=== PATIENT | female | born 1970 | race African-American/Black ===

== ENCOUNTER 2020-04-15 12:04 | Inpatient (IN) | payer OTHER ==
[2020-04-15] MEDS ORDERED: BISMUTH SUBSALICYLATE 524 MG/30 ML PO PRN (15:12)
[2020-04-15] MEDS ORDERED: NICOTINE POLACRILEX 2 MG GUM BUC PRN (15:12)
[2020-04-15] MEDS ORDERED: MAGNESIUM HYDROX 2400MG/30ML ORAL SUSPENSION 30 ML CUP PO PRN (15:12)
[2020-04-15] MEDS ORDERED: ACETAMINOPHEN 325 MG TABLET (FP) PO PRN ×2 (15:12)
[2020-04-15] MEDS ORDERED: MAG HYDROX/AL HYDROX/SIMETH 30 ML UNIT-DOSE CUP PO PRN (15:12)
[2020-04-15] MEDS ORDERED: ONDANSETRON *ODT* 4 MG TABLET SL PRN (15:12)
[2020-04-15] MEDS ORDERED: METHOCARBAMOL 500 MG TABLET PO PRN (15:12)
[2020-04-15] MEDS ORDERED: chlordiazePOXIDE HCL 25 MG CAPSULE PO PRN (15:12)
[2020-04-15] MEDS ORDERED: MAGNESIUM CITRATE 300 ML BOTTLE PO PRN (15:12)
[2020-04-15] MEDS ORDERED: MENTHOL/PHENOL 1 EACH UD MM PRN (15:12)
[2020-04-15] MEDS ORDERED: IBUPROFEN 400 MG TABLET (FP) PO PRN (15:12)
[2020-04-15 15:25] VITALS: BMI 31.1
[2020-04-15] MEDS ORDERED: ALBUTEROL SO4 HFA INHALER IH PRN (15:25)
[2020-04-15] MEDS: INSULIN SLIDING SCALE (NOVOLOG) 1 VIAL SQ SCH ×2 (17:26→22:32)
[2020-04-15] MEDS: metFORMIN HCL 500 MG TABLET (FP) PO SCH (18:01)
[2020-04-15] MEDS: hydrOXYzine PAMOATE 25 MG CAPSULE (FP) PO SCH ×2 (19:12→22:31)
[2020-04-15] MEDS ORDERED: QUEtiapine FUMARATE 100 MG TABLET (FP) PO ONE (19:56)
[2020-04-15] MEDS: ATORVASTATIN CA 10 MG TABLET (FP) PO SCH (22:25)
[2020-04-15] MEDS: MELATONIN 5 MG TABLETS PO SCH (22:25)
[2020-04-15] MEDS: THIAMINE HCL 100 MG TABLET (FP) PO SCH (22:25)
[2020-04-15] MEDS: INSULIN (LEVEMIR) 100 UNITS/ML UNITS SQ SCH (22:26)
[2020-04-15] MEDS: chlordiazePOXIDE HCL 25 MG CAPSULE PO SCH (22:30)
[2020-04-16] MEDS: chlordiazePOXIDE HCL 25 MG CAPSULE PO SCH ×4 (06:52→22:35)
[2020-04-16] MEDS: metFORMIN HCL 500 MG TABLET (FP) PO SCH ×2 (06:53→17:33)
[2020-04-16] MEDS: INSULIN SLIDING SCALE (NOVOLOG) 1 VIAL SQ SCH ×4 (07:00→22:38)
[2020-04-16] MEDS: hydrOXYzine PAMOATE 25 MG CAPSULE (FP) PO SCH ×2 (07:00→10:20)
[2020-04-16] MEDS ORDERED: PATIENT'S OWN MEDICATION (NON-FORMULARY) (Prednisone [Prednisone 50 Mg Tablets] 50 MG Tabl PO SCH (10:00)
[2020-04-16] MEDS ORDERED: SALMETEROL IH PRN ×2 (10:18→10:19)
[2020-04-16] MEDS ORDERED: FLUTICASONE PROPION IH PRN ×2 (10:18→10:19)
[2020-04-16] MEDS ORDERED: [UNRECOGNIZED DRUG - OTHER] IH PRN ×2 (10:18→10:19)
[2020-04-16] MEDS: ASPIRIN COATED 81 MG TABLET.EC PO SCH (10:19)
[2020-04-16] MEDS: LISINOPRIL 10 MG TABLET PO SCH (10:19)
[2020-04-16] MEDS: NIFEdipine E.R. 30 MG TABLET PO SCH (10:19)
[2020-04-16] MEDS: FERROUS SO4 325 MG TABLET (FP) PO SCH (10:19)
[2020-04-16] MEDS: predniSONE 40 MG, predniSONE 10 MG PO SCH (10:19)
[2020-04-16] MEDS: PRENATAL VITAMINS W/ FOLIC ACID TABLET (FP) PO SCH (10:20)
[2020-04-16 11:48] LABS: HEMATOCRIT 37.3 % (32.4-45.2); HEMOGLOBIN 11.9 GM/dL (10.7-15.3); MCH 25.8 pg (25.7-33.7); MEAN CELL VOLUME 80.8 fl (80-96); MEAN PLT VOLUME 8.3 fl (7.5-11.1); PLATELET COUNT 334 K/MM3 (134-434); RBC 4.62 M/mm3 (3.60-5.2); RDW 23.8 % (11.6-15.6); WHITE BLOOD COUNT 5.9 K/mm3 (4.0-10.0)
[2020-04-16] MEDS: [UNRECOGNIZED DRUG - OTHER] IH SCH (12:41)
[2020-04-16] MEDS: SALMETEROL IH SCH (12:41)
[2020-04-16] MEDS: FLUTICASONE PROPION IH SCH (12:41)
[2020-04-16 12:43] LABS: CALCIUM 9.3 mg/dL (8.5-10.1)
[2020-04-16 12:44] LABS: ALBUMIN 3.7 g/dl (3.4-5.0); BLOOD UREA NITROGEN 10.1 mg/dL (7-18)
[2020-04-16 12:47] LABS: CREATININE 0.7 mg/dL (0.55-1.3)
[2020-04-16 12:49] LABS: BILIRUBIN,TOTAL 0.9 mg/dL (0.2-1); TOT PROT 8.6 g/dl (6.4-8.2)
[2020-04-16] MEDS ORDERED: hydrOXYzine PAMOATE 25 MG CAPSULE (FP) PO PRN (13:43)
[2020-04-16] MEDS ORDERED: PANTOPRAZOLE 40 MG TABLET PO ONE (14:00)
[2020-04-16] MEDS ORDERED: MASKS NR ONE (16:50)
[2020-04-16] MEDS: QUEtiapine FUMARATE 100 MG TABLET (FP) PO SCH (22:34)
[2020-04-16] MEDS: THIAMINE HCL 100 MG TABLET (FP) PO SCH (22:35)
[2020-04-16] MEDS: MELATONIN 5 MG TABLETS PO SCH (22:35)
[2020-04-16] MEDS: ATORVASTATIN CA 10 MG TABLET (FP) PO SCH (22:35)
[2020-04-16] MEDS: INSULIN (LEVEMIR) 100 UNITS/ML UNITS SQ SCH (22:38)
[2020-04-17] MEDS: INSULIN SLIDING SCALE (NOVOLOG) 1 VIAL SQ SCH ×4 (06:35→21:50)
[2020-04-17] MEDS: metFORMIN HCL 500 MG TABLET (FP) PO SCH ×2 (06:35→16:48)
[2020-04-17] MEDS: chlordiazePOXIDE HCL 25 MG CAPSULE PO SCH ×4 (06:39→22:17)
[2020-04-17] MEDS: ASPIRIN COATED 81 MG TABLET.EC PO SCH (10:23)
[2020-04-17] MEDS: FERROUS SO4 325 MG TABLET (FP) PO SCH (10:23)
[2020-04-17] MEDS: LISINOPRIL 10 MG TABLET PO SCH (10:24)
[2020-04-17] MEDS: PRENATAL VITAMINS W/ FOLIC ACID TABLET (FP) PO SCH (10:24)
[2020-04-17] MEDS: NIFEdipine E.R. 30 MG TABLET PO SCH (10:24)
[2020-04-17] MEDS: PANTOPRAZOLE 40 MG TABLET PO SCH (10:24)
[2020-04-17] MEDS: predniSONE 40 MG, predniSONE 10 MG PO SCH (10:35)
[2020-04-17] MEDS: MELATONIN 5 MG TABLETS PO SCH (21:48)
[2020-04-17] MEDS: QUEtiapine FUMARATE 100 MG TABLET (FP) PO SCH (21:48)
[2020-04-17] MEDS: ATORVASTATIN CA 10 MG TABLET (FP) PO SCH (21:48)
[2020-04-17] MEDS: THIAMINE HCL 100 MG TABLET (FP) PO SCH (21:48)
[2020-04-17] MEDS: INSULIN (LEVEMIR) 100 UNITS/ML UNITS SQ SCH (22:48)
[2020-04-18] MEDS ORDERED: chlordiazePOXIDE HCL 10 MG CAPSULE PO PRN
[2020-04-18] MEDS: metFORMIN HCL 500 MG TABLET (FP) PO SCH (06:44)
[2020-04-18] MEDS: chlordiazePOXIDE HCL 10 MG CAPSULE PO SCH ×2 (06:44→10:06)
[2020-04-18] MEDS: INSULIN SLIDING SCALE (NOVOLOG) 1 VIAL SQ SCH ×2 (06:46→12:23)
[2020-04-18] MEDS: ASPIRIN COATED 81 MG TABLET.EC PO SCH (10:05)
[2020-04-18] MEDS: NIFEdipine E.R. 30 MG TABLET PO SCH (10:05)
[2020-04-18] MEDS: LISINOPRIL 10 MG TABLET PO SCH (10:05)
[2020-04-18] MEDS: PANTOPRAZOLE 40 MG TABLET PO SCH (10:05)
[2020-04-18] MEDS: FERROUS SO4 325 MG TABLET (FP) PO SCH (10:05)
[2020-04-18] MEDS: predniSONE 40 MG, predniSONE 10 MG PO SCH (10:05)
[2020-04-18] MEDS: PRENATAL VITAMINS W/ FOLIC ACID TABLET (FP) PO SCH (10:05)
[2020-04-18 13:16] VITALS: BP 128/82; PULSE 64; TEMP 97.1
[2020-04-19] MEDS ORDERED: chlordiazePOXIDE HCL 10 MG CAPSULE PO SCH (05:00)
[2020-04-20] MEDS ORDERED: chlordiazePOXIDE HCL 10 MG CAPSULE PO ONE (05:00)
== END 2020-04-18 13:46 | disposition home or self-care (01) | DRG 775 ==
LOC: YASAS 12:04 → Y3N 15:42
PROVIDERS: ADMIT Allergy & Immunology; ATTEND Allergy & Immunology
PROC: HZ2ZZZZ Detoxification Services for Substance Abuse Treatment (ICD-10-PCS; principal; 2020-04-15)
DX: F10.230 Alcohol dependence with withdrawal, uncomplicated (principal); F17.210 Nicotine dependence, cigarettes, uncomplicated; F25.9 Schizoaffective disorder, unspecified; F19.24 Other psychoactive substance dependence with psychoactive substance-induced mood disorder; F32.9 Major depressive disorder, single episode, unspecified; G47.00 Insomnia, unspecified; E78.5 Hyperlipidemia, unspecified; E11.9 Type 2 diabetes mellitus without complications; Z79.4 Long term (current) use of insulin; I10 Essential (primary) hypertension; J44.9 Chronic obstructive pulmonary disease, unspecified; R56.9 Unspecified convulsions; E66.9 Obesity, unspecified; Z68.31 Body mass index [BMI] 31.0-31.9, adult; Z91.013 Allergy to seafood
CPT/HCPCS: 36415; 80053; 81025; 82962; 85027; 86780; 93005; 93010; C9803; U0003

== ENCOUNTER 2021-09-18 15:48 | Inpatient (IN) | payer OTHER ==
[2021-09-18 18:51] VITALS: BMI 46.4
[2021-09-18] MEDS ORDERED: ALBUTEROL SO4 HFA INHALER IH PRN (19:47)
[2021-09-18] MEDS ORDERED: IBUPROFEN 600 MG TABLET (FP) PO PRN (20:33)
[2021-09-18] MEDS ORDERED: LOPERAMIDE HCL 2 MG CAPSULE PO PRN (20:33)
[2021-09-18] MEDS ORDERED: DICYCLOMINE HCL 10 MG CAPSULE PO PRN (20:33)
[2021-09-18] MEDS ORDERED: MAGNESIUM CITRATE 300 ML BOTTLE PO PRN (20:33)
[2021-09-18] MEDS ORDERED: NICOTINE 10 MG CARTRIDGE (INHALER) IH PRN (20:33)
[2021-09-18] MEDS ORDERED: MAG HYDROX/AL HYDROX/SIMETH 30 ML UNIT-DOSE CUP PO PRN (20:33)
[2021-09-18] MEDS ORDERED: MAGNESIUM HYDROX 2400MG/30ML ORAL SUSPENSION 30 ML CUP PO PRN (20:33)
[2021-09-18] MEDS ORDERED: BISMUTH SUBSALICYLATE 524 MG/30 ML PO PRN (20:33)
[2021-09-18] MEDS ORDERED: ONDANSETRON *ODT* 4 MG TABLET SL PRN (20:33)
[2021-09-18] MEDS ORDERED: ACETAMINOPHEN 325 MG TABLET (FP) PO PRN ×2 (20:33)
[2021-09-18] MEDS ORDERED: IBUPROFEN 400 MG TABLET (FP) PO PRN (20:33)
[2021-09-18] MEDS ORDERED: BENZOCAINE/MENTHOL (CHLORASEPTIC ) LOZENGE MM PRN (20:33)
[2021-09-18] MEDS ORDERED: chlordiazePOXIDE HCL 25 MG CAPSULE PO PRN (20:35)
[2021-09-18] MEDS ORDERED: PATIENT'S OWN MEDICATION (NON-FORMULARY) (Insulin Glargine,Hum.Rec.Anlog [Basaglar Kwikpen SQ SCH (22:00)
[2021-09-18] MEDS: hydrOXYzine PAMOATE 25 MG CAPSULE (FP) PO PRN (23:39)
[2021-09-18] MEDS: chlordiazePOXIDE HCL 25 MG CAPSULE PO SCH (23:39)
[2021-09-18] MEDS: MELATONIN 5 MG TABLETS PO SCH (23:39)
[2021-09-18] MEDS: METHOCARBAMOL 500 MG TABLET PO PRN (23:39)
[2021-09-18] MEDS: THIAMINE HCL 100 MG TABLET (FP) PO SCH (23:40)
[2021-09-19] MEDS: metFORMIN HCL 500 MG TABLET (FP) PO SCH ×2 (06:33→17:00)
[2021-09-19] MEDS: chlordiazePOXIDE HCL 25 MG CAPSULE PO SCH ×4 (06:33→22:34)
[2021-09-19] MEDS ORDERED: PATIENT'S OWN MEDICATION (NON-FORMULARY) (Insulin Lispro [Admelog Solostar] 100 UNIT/ML In SQ SCH (08:00)
[2021-09-19] MEDS ORDERED: INSULIN LISPRO 25 UNIT SQ PRN (10:21)
[2021-09-19] MEDS: PRENATAL VITAMINS W/ FOLIC ACID TABLET (FP) PO SCH (11:43)
[2021-09-19] MEDS: ASPIRIN COATED 81 MG TABLET.EC PO SCH (11:43)
[2021-09-19] MEDS: FOLIC ACID 1 MG TABLET (FP) PO SCH (11:44)
[2021-09-19] MEDS: FERROUS SO4 325 MG TABLET (FP) PO SCH (11:44)
[2021-09-19] MEDS: NIFEdipine E.R 60 MG TABLET PO SCH (11:44)
[2021-09-19] MEDS ORDERED: PANTOPRAZOLE 20 MG TABLET PO ONE (13:15)
[2021-09-19] MEDS: INSULIN SLIDING SCALE (NOVOLOG) 1 VIAL SQ SCH ×2 (17:00→22:35)
[2021-09-19] MEDS ORDERED: INSULIN (NOVOLOG) ASPART 100 UNITS/ML 10ML VIAL ONE ×2 (17:33→21:25)
[2021-09-19] MEDS: hydrOXYzine PAMOATE 25 MG CAPSULE (FP) PO PRN (18:12)
[2021-09-19] MEDS: METHOCARBAMOL 500 MG TABLET PO PRN (18:13)
[2021-09-19] MEDS: MELATONIN 5 MG TABLETS PO SCH (22:34)
[2021-09-19] MEDS: THIAMINE HCL 100 MG TABLET (FP) PO SCH (22:35)
[2021-09-20] MEDS: chlordiazePOXIDE HCL 25 MG CAPSULE PO SCH ×4 (05:48→22:10)
[2021-09-20] MEDS: metFORMIN HCL 500 MG TABLET (FP) PO SCH ×2 (06:00→16:50)
[2021-09-20] MEDS: LEVOTHYROXINE NA 25 MCG TABLET (FP) PO SCH (06:00)
[2021-09-20] MEDS: INSULIN SLIDING SCALE (NOVOLOG) 1 VIAL SQ SCH ×4 (06:35→22:01)
[2021-09-20] MEDS: SERTRALINE HCL 50 MG TABLET (FP) PO SCH (10:43)
[2021-09-20] MEDS: PRENATAL VITAMINS W/ FOLIC ACID TABLET (FP) PO SCH (10:43)
[2021-09-20] MEDS: ARIPiprazole 15 MG TABLET PO SCH (10:43)
[2021-09-20] MEDS: PANTOPRAZOLE 40 MG TABLET PO SCH (10:44)
[2021-09-20] MEDS: NIFEdipine E.R 60 MG TABLET PO SCH (10:44)
[2021-09-20] MEDS: FOLIC ACID 1 MG TABLET (FP) PO SCH (10:44)
[2021-09-20] MEDS: hydrOXYzine PAMOATE 25 MG CAPSULE (FP) PO PRN ×2 (10:44→22:08)
[2021-09-20] MEDS: FERROUS SO4 325 MG TABLET (FP) PO SCH (10:44)
[2021-09-20] MEDS: ASPIRIN COATED 81 MG TABLET.EC PO SCH (10:44)
[2021-09-20] MEDS: LITHIUM CARBONATE 300 MG CAPSULE PO SCH ×2 (11:31→22:09)
[2021-09-20] MEDS ORDERED: INSULIN (NOVOLOG) ASPART 100 UNITS/ML 10ML VIAL ONE ×3 (11:32→22:00)
[2021-09-20] MEDS: NICOTINE POLACRILEX 4 MG GUM BUC PRN (17:07)
[2021-09-20] MEDS: QUEtiapine FUMARATE 200 MG TABLET PO SCH (22:08)
[2021-09-20] MEDS: PATIENT'S OWN MEDICATION (NON-FORMULARY) (Insulin Glargine,Hum.Rec.Anlog [Basaglar Kwikpen SQ SCH (22:08)
[2021-09-20] MEDS: THIAMINE HCL 100 MG TABLET (FP) PO SCH (22:09)
[2021-09-21] MEDS ORDERED: chlordiazePOXIDE HCL 10 MG CAPSULE PO PRN
[2021-09-21] MEDS: metFORMIN HCL 500 MG TABLET (FP) PO SCH ×2 (06:26→17:00)
[2021-09-21] MEDS: chlordiazePOXIDE HCL 10 MG CAPSULE PO SCH ×4 (06:26→22:10)
[2021-09-21] MEDS: LEVOTHYROXINE NA 25 MCG TABLET (FP) PO SCH (06:26)
[2021-09-21] MEDS ORDERED: INSULIN (NOVOLOG) ASPART 100 UNITS/ML 10ML VIAL ONE ×2 (08:27→21:13)
[2021-09-21] MEDS: INSULIN SLIDING SCALE (NOVOLOG) 1 VIAL SQ SCH ×4 (08:31→22:08)
[2021-09-21] MEDS: ARIPiprazole 15 MG TABLET PO SCH (10:39)
[2021-09-21] MEDS: FERROUS SO4 325 MG TABLET (FP) PO SCH (10:39)
[2021-09-21] MEDS: ASPIRIN COATED 81 MG TABLET.EC PO SCH (10:39)
[2021-09-21] MEDS: PANTOPRAZOLE 40 MG TABLET PO SCH (10:40)
[2021-09-21] MEDS: LITHIUM CARBONATE 300 MG CAPSULE PO SCH ×2 (10:40→22:07)
[2021-09-21] MEDS: SERTRALINE HCL 50 MG TABLET (FP) PO SCH (10:41)
[2021-09-21] MEDS: NIFEdipine E.R 60 MG TABLET PO SCH (10:41)
[2021-09-21] MEDS: PRENATAL VITAMINS W/ FOLIC ACID TABLET (FP) PO SCH (10:44)
[2021-09-21] MEDS: FOLIC ACID 1 MG TABLET (FP) PO SCH (12:14)
[2021-09-21] MEDS: NICOTINE POLACRILEX 4 MG GUM BUC PRN (13:28)
[2021-09-21] MEDS: hydrOXYzine PAMOATE 25 MG CAPSULE (FP) PO PRN (18:04)
[2021-09-21] MEDS: QUEtiapine FUMARATE 200 MG TABLET PO SCH (22:07)
[2021-09-21] MEDS: THIAMINE HCL 100 MG TABLET (FP) PO SCH (22:07)
[2021-09-21] MEDS: PATIENT'S OWN MEDICATION (NON-FORMULARY) (Insulin Glargine,Hum.Rec.Anlog [Basaglar Kwikpen SQ SCH (22:10)
[2021-09-21] MEDS: METHOCARBAMOL 500 MG TABLET PO PRN (23:26)
[2021-09-22] MEDS: chlordiazePOXIDE HCL 10 MG CAPSULE PO SCH ×2 (05:13→17:39)
[2021-09-22] MEDS: NICOTINE POLACRILEX 4 MG GUM BUC PRN ×5 (05:47→23:47)
[2021-09-22] MEDS: metFORMIN HCL 500 MG TABLET (FP) PO SCH ×2 (06:32→17:39)
[2021-09-22] MEDS: LEVOTHYROXINE NA 25 MCG TABLET (FP) PO SCH (06:33)
[2021-09-22] MEDS: INSULIN SLIDING SCALE (NOVOLOG) 1 VIAL SQ SCH ×4 (08:49→22:37)
[2021-09-22 09:05] LABS: BASO % 1.2 % (0-2.0); EOS % 1.2 % (0-4.5); HEMATOCRIT 34.1 % (32.4-45.2); HEMOGLOBIN 10.6 GM/dL (10.7-15.3); LYMPH % 40.1 % (8-40); MCH 24.9 pg (25.7-33.7); MCHC 30.9 g/dl (32.0-36.0); MEAN CELL VOLUME 80.4 fl (80-96); MEAN PLT VOLUME 8.6 fl (7.5-11.1); MONO % 8.1 % (3.8-10.2); NEUT % 49.4 % (42.8-82.8); PLATELET COUNT 386 10^3/uL (134-434); RBC 4.25 M/mm3 (3.60-5.2); WHITE BLOOD COUNT 9.7 K/mm3 (4.0-10.0)
[2021-09-22 09:06] LABS: ALBUMIN 3.1 g/dl (3.4-5.0)
[2021-09-22 09:09] LABS: CREATININE 0.6 mg/dL (0.55-1.3)
[2021-09-22 09:10] LABS: BILIRUBIN,TOTAL 0.3 mg/dL (0.2-1); TOT PROT 6.8 g/dl (6.4-8.2)
[2021-09-22] MEDS: ASPIRIN COATED 81 MG TABLET.EC PO SCH (10:41)
[2021-09-22] MEDS: ARIPiprazole 15 MG TABLET PO SCH (10:41)
[2021-09-22] MEDS: PANTOPRAZOLE 40 MG TABLET PO SCH (10:41)
[2021-09-22] MEDS: FERROUS SO4 325 MG TABLET (FP) PO SCH (10:42)
[2021-09-22] MEDS: NIFEdipine E.R 60 MG TABLET PO SCH (10:42)
[2021-09-22] MEDS: PRENATAL VITAMINS W/ FOLIC ACID TABLET (FP) PO SCH (10:42)
[2021-09-22] MEDS: SERTRALINE HCL 50 MG TABLET (FP) PO SCH (10:42)
[2021-09-22] MEDS: LITHIUM CARBONATE 300 MG CAPSULE PO SCH ×2 (10:42→22:36)
[2021-09-22] MEDS: FOLIC ACID 1 MG TABLET (FP) PO SCH (10:44)
[2021-09-22] MEDS ORDERED: INSULIN (NOVOLOG) ASPART 100 UNITS/ML 10ML VIAL ONE ×2 (11:58→17:24)
[2021-09-22] MEDS ORDERED: SUVOREXANT 10 MG TABLET PO PRN (22:00)
[2021-09-22] MEDS: METHOCARBAMOL 500 MG TABLET PO PRN (22:34)
[2021-09-22] MEDS: QUEtiapine FUMARATE 200 MG TABLET PO SCH (22:34)
[2021-09-22] MEDS: PATIENT'S OWN MEDICATION (NON-FORMULARY) (Insulin Glargine,Hum.Rec.Anlog [Basaglar Kwikpen SQ SCH (22:36)
[2021-09-22] MEDS: THIAMINE HCL 100 MG TABLET (FP) PO SCH (22:37)
[2021-09-23] MEDS ORDERED: chlordiazePOXIDE HCL 10 MG CAPSULE PO ONE (05:00)
[2021-09-23] MEDS: metFORMIN HCL 500 MG TABLET (FP) PO SCH (06:01)
[2021-09-23] MEDS: LEVOTHYROXINE NA 25 MCG TABLET (FP) PO SCH (06:01)
[2021-09-23] MEDS: NICOTINE POLACRILEX 4 MG GUM BUC PRN (06:17)
[2021-09-23] MEDS: INSULIN SLIDING SCALE (NOVOLOG) 1 VIAL SQ SCH (07:57)
[2021-09-23] MEDS: SERTRALINE HCL 50 MG TABLET (FP) PO SCH (09:01)
[2021-09-23] MEDS: PRENATAL VITAMINS W/ FOLIC ACID TABLET (FP) PO SCH (09:01)
[2021-09-23] MEDS: LITHIUM CARBONATE 300 MG CAPSULE PO SCH (09:01)
[2021-09-23] MEDS: FERROUS SO4 325 MG TABLET (FP) PO SCH (09:01)
[2021-09-23] MEDS: FOLIC ACID 1 MG TABLET (FP) PO SCH (09:01)
[2021-09-23] MEDS: PANTOPRAZOLE 40 MG TABLET PO SCH (09:01)
[2021-09-23] MEDS: ASPIRIN COATED 81 MG TABLET.EC PO SCH (09:01)
[2021-09-23] MEDS: ARIPiprazole 15 MG TABLET PO SCH (09:01)
[2021-09-23] MEDS: NIFEdipine E.R 60 MG TABLET PO SCH (09:03)
[2021-09-23 09:06] VITALS: BP 115/67; PULSE 85; RESP 20; TEMP 98.2
== END 2021-09-23 09:10 | disposition home or self-care (01) | DRG 775 ==
LOC: YASAS 15:48 → Y6N 22:04
PROVIDERS: ADMIT Allergy & Immunology; ATTEND Surgery
PROC: HZ2ZZZZ Detoxification Services for Substance Abuse Treatment (ICD-10-PCS; principal; 2021-09-18)
DX: F10.230 Alcohol dependence with withdrawal, uncomplicated (principal); F12.20 Cannabis dependence, uncomplicated; F17.210 Nicotine dependence, cigarettes, uncomplicated; F25.9 Schizoaffective disorder, unspecified; F10.282 Alcohol dependence with alcohol-induced sleep disorder; I10 Essential (primary) hypertension; E78.5 Hyperlipidemia, unspecified; E03.9 Hypothyroidism, unspecified; E11.9 Type 2 diabetes mellitus without complications; Z79.4 Long term (current) use of insulin; J45.909 Unspecified asthma, uncomplicated; E66.01 Morbid (severe) obesity due to excess calories; Z68.42 Body mass index [BMI] 45.0-49.9, adult; Z59.01 Sheltered homelessness; Z56.0 Unemployment, unspecified; Z86.19 Personal history of other infectious and parasitic diseases; Z88.0 Allergy status to penicillin; Z91.013 Allergy to seafood
CPT/HCPCS: 36415; 80053; 82962; 85025; C9803-CS; U0003; U0005

== ENCOUNTER 2021-10-14 16:50 | Inpatient (IN) | payer OTHER ==
[2021-10-14 18:41] VITALS: BMI 46.4
[2021-10-14] MEDS ORDERED: NICOTINE 10 MG CARTRIDGE (INHALER) IH PRN (19:26)
[2021-10-14] MEDS ORDERED: MAGNESIUM HYDROX 2400MG/30ML ORAL SUSPENSION 30 ML CUP PO PRN (19:26)
[2021-10-14] MEDS ORDERED: MAG HYDROX/AL HYDROX/SIMETH 30 ML UNIT-DOSE CUP PO PRN (19:26)
[2021-10-14] MEDS ORDERED: IBUPROFEN 400 MG TABLET (FP) PO PRN (19:26)
[2021-10-14] MEDS ORDERED: BISMUTH SUBSALICYLATE 524 MG/30 ML PO PRN (19:26)
[2021-10-14] MEDS ORDERED: METHOCARBAMOL 500 MG TABLET PO PRN (19:26)
[2021-10-14] MEDS ORDERED: DICYCLOMINE HCL 10 MG CAPSULE PO PRN (19:26)
[2021-10-14] MEDS ORDERED: LOPERAMIDE HCL 2 MG CAPSULE PO PRN (19:26)
[2021-10-14] MEDS ORDERED: ACETAMINOPHEN 325 MG TABLET (FP) PO PRN ×2 (19:26)
[2021-10-14] MEDS ORDERED: ONDANSETRON *ODT* 4 MG TABLET SL PRN (19:26)
[2021-10-14] MEDS ORDERED: MAGNESIUM CITRATE 300 ML BOTTLE PO PRN (19:26)
[2021-10-14] MEDS ORDERED: chlordiazePOXIDE HCL 25 MG CAPSULE PO PRN (19:26)
[2021-10-14] MEDS ORDERED: BENZOCAINE/MENTHOL (CHLORASEPTIC ) LOZENGE MM PRN (19:26)
[2021-10-14] MEDS ORDERED: ALBUTEROL SO4 HFA INHALER IH PRN (19:28)
[2021-10-14] MEDS ORDERED: PATIENT'S OWN MEDICATION (NON-FORMULARY) (Insulin Lispro [Admelog Solostar] 100 UNIT/ML In SQ SCH (19:30)
[2021-10-14] MEDS: NICOTINE POLACRILEX 4 MG GUM BUC PRN (20:59)
[2021-10-14] MEDS ORDERED: INSULIN (LEVEMIR) 100 UNITS/ML UNITS SQ SCH (22:00)
[2021-10-14] MEDS ORDERED: QUEtiapine FUMARATE 200 MG TABLET PO ONE (22:00)
[2021-10-14] MEDS ORDERED: LITHIUM CARBONATE 300 MG CAPSULE PO ONE ×2 (22:00→23:45)
[2021-10-14] MEDS ORDERED: PATIENT'S OWN MEDICATION (NON-FORMULARY) (Insulin Glargine,Hum.Rec.Anlog [Basaglar Kwikpen SQ SCH (22:00)
[2021-10-14] MEDS: THIAMINE HCL 100 MG TABLET (FP) PO SCH (22:54)
[2021-10-14] MEDS: MELATONIN 5 MG TABLETS PO SCH (22:54)
[2021-10-14] MEDS: chlordiazePOXIDE HCL 25 MG CAPSULE PO SCH (22:54)
[2021-10-14] MEDS: hydrOXYzine PAMOATE 25 MG CAPSULE (FP) PO SCH (22:54)
[2021-10-14] MEDS: GABAPENTIN 100 MG CAPSULE PO SCH (22:55)
[2021-10-14] MEDS: metFORMIN HCL 500 MG TABLET (FP) PO SCH (22:55)
[2021-10-14] MEDS: ATORVASTATIN CA 40 MG TABLET (FP) PO SCH (22:55)
[2021-10-14] MEDS: INSULIN (LEVEMIR) 100 UNITS/ML UNITS SQ SCH (22:56)
[2021-10-14] MEDS: INSULIN SLIDING SCALE (NOVOLOG) 1 VIAL SQ SCH (23:04)
[2021-10-14] MEDS: PRENATAL VITAMINS W/ FOLIC ACID TABLET (FP) PO SCH (23:05)
[2021-10-15] MEDS ORDERED: INSULIN SLIDING SCALE (NOVOLOG) 1 VIAL SQ ONE ×2 (04:09→07:45)
[2021-10-15] MEDS: hydrOXYzine PAMOATE 25 MG CAPSULE (FP) PO SCH ×5 (05:42→22:16)
[2021-10-15] MEDS: chlordiazePOXIDE HCL 25 MG CAPSULE PO SCH ×4 (05:42→22:17)
[2021-10-15] MEDS: GABAPENTIN 100 MG CAPSULE PO SCH ×3 (05:42→22:16)
[2021-10-15] MEDS: metFORMIN HCL 500 MG TABLET (FP) PO SCH ×2 (06:51→17:37)
[2021-10-15] MEDS: INSULIN (LEVEMIR) 100 UNITS/ML UNITS SQ SCH ×2 (06:51→22:17)
[2021-10-15] MEDS: INSULIN SLIDING SCALE (NOVOLOG) 1 VIAL SQ SCH ×4 (06:52→21:36)
[2021-10-15] MEDS: LEVOTHYROXINE NA 25 MCG TABLET (FP) PO SCH (06:54)
[2021-10-15] MEDS: ASPIRIN COATED 81 MG TABLET.EC PO SCH (10:43)
[2021-10-15] MEDS: FERROUS SO4 325 MG TABLET (FP) PO SCH (10:44)
[2021-10-15] MEDS: PRENATAL VITAMINS W/ FOLIC ACID TABLET (FP) PO SCH (10:44)
[2021-10-15] MEDS: NIFEdipine E.R 60 MG TABLET PO SCH (10:44)
[2021-10-15] MEDS: PANTOPRAZOLE 40 MG TABLET PO SCH (10:45)
[2021-10-15] MEDS: NICOTINE POLACRILEX 4 MG GUM BUC PRN (18:35)
[2021-10-15] MEDS: THIAMINE HCL 100 MG TABLET (FP) PO SCH (22:16)
[2021-10-15] MEDS: ATORVASTATIN CA 40 MG TABLET (FP) PO SCH (22:16)
[2021-10-15] MEDS: MELATONIN 5 MG TABLETS PO SCH (22:17)
[2021-10-15] MEDS: IBUPROFEN 600 MG TABLET (FP) PO PRN (22:24)
[2021-10-16] MEDS: chlordiazePOXIDE HCL 25 MG CAPSULE PO SCH ×4 (05:35→22:05)
[2021-10-16] MEDS: LEVOTHYROXINE NA 25 MCG TABLET (FP) PO SCH (06:50)
[2021-10-16] MEDS: hydrOXYzine PAMOATE 25 MG CAPSULE (FP) PO SCH ×5 (06:51→22:03)
[2021-10-16] MEDS: GABAPENTIN 100 MG CAPSULE PO SCH ×3 (06:51→22:02)
[2021-10-16] MEDS: metFORMIN HCL 500 MG TABLET (FP) PO SCH ×2 (06:52→17:35)
[2021-10-16] MEDS: INSULIN (LEVEMIR) 100 UNITS/ML UNITS SQ SCH ×2 (07:32→22:05)
[2021-10-16] MEDS: INSULIN SLIDING SCALE (NOVOLOG) 1 VIAL SQ SCH ×4 (07:32→22:06)
[2021-10-16] MEDS: PRENATAL VITAMINS W/ FOLIC ACID TABLET (FP) PO SCH (10:31)
[2021-10-16] MEDS: PANTOPRAZOLE 40 MG TABLET PO SCH (10:31)
[2021-10-16] MEDS: NIFEdipine E.R 60 MG TABLET PO SCH (10:31)
[2021-10-16] MEDS: ARIPiprazole 10 MG TABLET PO SCH (10:31)
[2021-10-16] MEDS: ASPIRIN COATED 81 MG TABLET.EC PO SCH (10:31)
[2021-10-16] MEDS: FERROUS SO4 325 MG TABLET (FP) PO SCH (10:31)
[2021-10-16] MEDS: NICOTINE POLACRILEX 4 MG GUM BUC PRN ×3 (11:32→23:12)
[2021-10-16] MEDS: IBUPROFEN 600 MG TABLET (FP) PO PRN (18:31)
[2021-10-16] MEDS ORDERED: METOPROLOL TARTRATE 50 MG TABLET (FP) PO ONE (21:15)
[2021-10-16] MEDS: THIAMINE HCL 100 MG TABLET (FP) PO SCH (22:02)
[2021-10-16] MEDS: ATORVASTATIN CA 40 MG TABLET (FP) PO SCH (22:02)
[2021-10-16] MEDS: MELATONIN 5 MG TABLETS PO SCH (22:02)
[2021-10-17] MEDS ORDERED: chlordiazePOXIDE HCL 10 MG CAPSULE PO PRN
[2021-10-17] MEDS ORDERED: MELATONIN 5 MG TABLETS PO ONE (01:30)
[2021-10-17] MEDS: NICOTINE POLACRILEX 4 MG GUM BUC PRN ×3 (04:24→19:52)
[2021-10-17] MEDS: GABAPENTIN 100 MG CAPSULE PO SCH ×3 (05:15→21:56)
[2021-10-17] MEDS: chlordiazePOXIDE HCL 10 MG CAPSULE PO SCH ×4 (05:15→23:16)
[2021-10-17] MEDS: hydrOXYzine PAMOATE 25 MG CAPSULE (FP) PO SCH ×5 (05:15→23:16)
[2021-10-17] MEDS: metFORMIN HCL 500 MG TABLET (FP) PO SCH ×2 (07:09→17:40)
[2021-10-17] MEDS: LEVOTHYROXINE NA 25 MCG TABLET (FP) PO SCH (07:09)
[2021-10-17] MEDS: INSULIN (LEVEMIR) 100 UNITS/ML UNITS SQ SCH ×2 (07:10→21:56)
[2021-10-17] MEDS: INSULIN SLIDING SCALE (NOVOLOG) 1 VIAL SQ SCH ×4 (07:10→21:59)
[2021-10-17] MEDS: PANTOPRAZOLE 40 MG TABLET PO SCH (10:22)
[2021-10-17] MEDS: NIFEdipine E.R 60 MG TABLET PO SCH (10:22)
[2021-10-17] MEDS: ARIPiprazole 10 MG TABLET PO SCH (10:22)
[2021-10-17] MEDS: FERROUS SO4 325 MG TABLET (FP) PO SCH (10:22)
[2021-10-17] MEDS: PRENATAL VITAMINS W/ FOLIC ACID TABLET (FP) PO SCH (10:22)
[2021-10-17] MEDS: ASPIRIN COATED 81 MG TABLET.EC PO SCH (10:22)
[2021-10-17] MEDS ORDERED: METOPROLOL TARTRATE 50 MG TABLET (FP) PO ONE (20:44)
[2021-10-17] MEDS: ATORVASTATIN CA 40 MG TABLET (FP) PO SCH (21:56)
[2021-10-17] MEDS: THIAMINE HCL 100 MG TABLET (FP) PO SCH (21:56)
[2021-10-17] MEDS: QUEtiapine FUMARATE 200 MG TABLET PO SCH (21:57)
[2021-10-17] MEDS: MELATONIN 5 MG TABLETS PO SCH (23:16)
[2021-10-18] MEDS: GABAPENTIN 100 MG CAPSULE PO SCH ×3 (05:24→21:59)
[2021-10-18] MEDS: hydrOXYzine PAMOATE 25 MG CAPSULE (FP) PO SCH ×5 (07:05→22:01)
[2021-10-18] MEDS: metFORMIN HCL 500 MG TABLET (FP) PO SCH ×2 (07:05→17:32)
[2021-10-18] MEDS: chlordiazePOXIDE HCL 10 MG CAPSULE PO SCH ×2 (07:05→17:57)
[2021-10-18] MEDS: LEVOTHYROXINE NA 25 MCG TABLET (FP) PO SCH (07:23)
[2021-10-18] MEDS: INSULIN SLIDING SCALE (NOVOLOG) 1 VIAL SQ SCH ×4 (07:23→21:58)
[2021-10-18] MEDS: INSULIN (LEVEMIR) 100 UNITS/ML UNITS SQ SCH ×2 (07:24→21:58)
[2021-10-18] MEDS ORDERED: INSULIN SLIDING SCALE (NOVOLOG) 1 VIAL SQ ONE (07:25)
[2021-10-18] MEDS ORDERED: INSULIN (LEVEMIR) 100 UNITS/ML UNITS SQ ONE (07:26)
[2021-10-18] MEDS: ARIPiprazole 10 MG TABLET PO SCH (10:15)
[2021-10-18] MEDS: ASPIRIN COATED 81 MG TABLET.EC PO SCH (10:15)
[2021-10-18] MEDS: PRENATAL VITAMINS W/ FOLIC ACID TABLET (FP) PO SCH (10:15)
[2021-10-18] MEDS: FERROUS SO4 325 MG TABLET (FP) PO SCH (10:16)
[2021-10-18] MEDS: NIFEdipine E.R 60 MG TABLET PO SCH (10:16)
[2021-10-18] MEDS: PANTOPRAZOLE 40 MG TABLET PO SCH (10:16)
[2021-10-18 11:43] LABS: HEMATOCRIT 36.1 % (32.4-45.2); HEMOGLOBIN 11.5 GM/dL (10.7-15.3); MCH 26.1 pg (25.7-33.7); MCHC 31.8 g/dl (32.0-36.0); MEAN PLT VOLUME 7.5 fl (7.5-11.1); PLATELET COUNT 368 10^3/uL (134-434); RDW 20.4 % (11.6-15.6); WHITE BLOOD COUNT 6.5 K/mm3 (4.0-10.0)
[2021-10-18 12:14] LABS: ALBUMIN 2.9 g/dl (3.4-5.0); BILIRUBIN,TOTAL 0.4 mg/dL (0.2-1); BLOOD UREA NITROGEN 14.3 mg/dL (7-18); CALCIUM 8.6 mg/dL (8.5-10.1); CREATININE 0.6 mg/dL (0.55-1.3)
[2021-10-18] MEDS: NICOTINE POLACRILEX 4 MG GUM BUC PRN ×2 (16:37→18:58)
[2021-10-18] MEDS: THIAMINE HCL 100 MG TABLET (FP) PO SCH (21:59)
[2021-10-18] MEDS: ATORVASTATIN CA 40 MG TABLET (FP) PO SCH (21:59)
[2021-10-18] MEDS: QUEtiapine FUMARATE 200 MG TABLET PO SCH (21:59)
[2021-10-18] MEDS: MELATONIN 5 MG TABLETS PO SCH (22:01)
[2021-10-19] MEDS ORDERED: INSULIN SLIDING SCALE (NOVOLOG) 1 VIAL SQ ONE (04:06)
[2021-10-19] MEDS ORDERED: chlordiazePOXIDE HCL 10 MG CAPSULE PO ONE (05:00)
[2021-10-19] MEDS: GABAPENTIN 100 MG CAPSULE PO SCH (05:58)
[2021-10-19] MEDS: hydrOXYzine PAMOATE 25 MG CAPSULE (FP) PO SCH ×2 (06:16→10:17)
[2021-10-19] MEDS: metFORMIN HCL 500 MG TABLET (FP) PO SCH (06:22)
[2021-10-19] MEDS: INSULIN SLIDING SCALE (NOVOLOG) 1 VIAL SQ SCH (06:22)
[2021-10-19] MEDS: LEVOTHYROXINE NA 25 MCG TABLET (FP) PO SCH (06:24)
[2021-10-19] MEDS: INSULIN (LEVEMIR) 100 UNITS/ML UNITS SQ SCH (08:02)
[2021-10-19 10:04] VITALS: BP 123/68; PULSE 73; RESP 18; TEMP 96.9
[2021-10-19] MEDS: ARIPiprazole 10 MG TABLET PO SCH (10:15)
[2021-10-19] MEDS: PRENATAL VITAMINS W/ FOLIC ACID TABLET (FP) PO SCH (10:15)
[2021-10-19] MEDS: PANTOPRAZOLE 40 MG TABLET PO SCH (10:15)
[2021-10-19] MEDS: NIFEdipine E.R 60 MG TABLET PO SCH (10:15)
[2021-10-19] MEDS: FERROUS SO4 325 MG TABLET (FP) PO SCH (10:16)
[2021-10-19] MEDS: ASPIRIN COATED 81 MG TABLET.EC PO SCH (10:16)
== END 2021-10-19 10:32 | disposition home or self-care (01) | DRG 775 ==
LOC: YASAS 16:50 → Y3N 19:58
PROVIDERS: ADMIT Allergy & Immunology; ATTEND Surgery
PROC: HZ2ZZZZ Detoxification Services for Substance Abuse Treatment (ICD-10-PCS; principal; 2021-10-14)
DX: F10.230 Alcohol dependence with withdrawal, uncomplicated (principal); F12.20 Cannabis dependence, uncomplicated; F17.210 Nicotine dependence, cigarettes, uncomplicated; F25.9 Schizoaffective disorder, unspecified; F19.24 Other psychoactive substance dependence with psychoactive substance-induced mood disorder; I10 Essential (primary) hypertension; J45.40 Moderate persistent asthma, uncomplicated; E78.5 Hyperlipidemia, unspecified; E11.42 Type 2 diabetes mellitus with diabetic polyneuropathy; Z79.4 Long term (current) use of insulin; E66.01 Morbid (severe) obesity due to excess calories; Z68.42 Body mass index [BMI] 45.0-49.9, adult; Z88.0 Allergy status to penicillin; Z91.013 Allergy to seafood
CPT/HCPCS: 36415; 80053; 82962; 85027; 86780; 87811; C9803-CS; U0003; U0005

== ENCOUNTER 2021-11-07 11:07 | Inpatient (IN) | payer OTHER ==
[2021-11-07 11:50] VITALS: BMI 49.2
[2021-11-07] MEDS ORDERED: MAG HYDROX/AL HYDROX/SIMETH 30 ML UNIT-DOSE CUP PO PRN (12:35)
[2021-11-07] MEDS ORDERED: chlordiazePOXIDE HCL 25 MG CAPSULE PO PRN (12:35)
[2021-11-07] MEDS ORDERED: ONDANSETRON *ODT* 4 MG TABLET SL PRN (12:35)
[2021-11-07] MEDS ORDERED: MAGNESIUM HYDROX 2400MG/30ML ORAL SUSPENSION 30 ML CUP PO PRN (12:35)
[2021-11-07] MEDS ORDERED: ACETAMINOPHEN 325 MG TABLET (FP) PO PRN ×2 (12:35)
[2021-11-07] MEDS ORDERED: METHOCARBAMOL 500 MG TABLET PO PRN (12:35)
[2021-11-07] MEDS ORDERED: DICYCLOMINE HCL 10 MG CAPSULE PO PRN (12:35)
[2021-11-07] MEDS ORDERED: BENZOCAINE/MENTHOL (CHLORASEPTIC ) LOZENGE MM PRN (12:35)
[2021-11-07] MEDS ORDERED: BISMUTH SUBSALICYLATE 524 MG/30 ML PO PRN (12:35)
[2021-11-07] MEDS ORDERED: MAGNESIUM CITRATE 300 ML BOTTLE PO PRN (12:35)
[2021-11-07] MEDS ORDERED: LOPERAMIDE HCL 2 MG CAPSULE PO PRN (12:35)
[2021-11-07] MEDS ORDERED: cloNIDine HCL 0.1 MG TABLET PO PRN (12:35)
[2021-11-07] MEDS ORDERED: NALOXONE HCL (KLOXXADO) 8 MG SPRAY NS PRN (12:35)
[2021-11-07] MEDS ORDERED: IBUPROFEN 400 MG TABLET (FP) PO PRN (12:35)
[2021-11-07] MEDS ORDERED: ALBUTEROL SO4 HFA INHALER IH PRN (12:43)
[2021-11-07] MEDS ORDERED: methaDONE HCL 10 MG TABLET (FOR DETOX USE ONLY) PO ONE (13:00)
[2021-11-07] MEDS: NICOTINE POLACRILEX 4 MG GUM BUC PRN (13:19)
[2021-11-07] MEDS ORDERED: PATIENT'S OWN MEDICATION (NON-FORMULARY) (Metformin Hcl [Glucophage] 1,000 MG Tablet) PO SCH (13:30)
[2021-11-07] MEDS: hydrOXYzine PAMOATE 25 MG CAPSULE (FP) PO SCH ×3 (14:49→22:37)
[2021-11-07] MEDS: GABAPENTIN 100 MG CAPSULE PO SCH ×2 (14:50→22:37)
[2021-11-07] MEDS: ASPIRIN COATED 81 MG TABLET.EC PO SCH (14:50)
[2021-11-07] MEDS: PANTOPRAZOLE 40 MG TABLET PO SCH (14:50)
[2021-11-07] MEDS: LEVOTHYROXINE NA 25 MCG TABLET (FP) PO SCH (14:50)
[2021-11-07] MEDS: NIFEdipine E.R 60 MG TABLET PO SCH (14:51)
[2021-11-07] MEDS: metFORMIN HCL 500 MG TABLET (FP) PO SCH (19:06)
[2021-11-07] MEDS: chlordiazePOXIDE HCL 25 MG CAPSULE PO SCH ×2 (19:07→22:38)
[2021-11-07] MEDS: INSULIN SLIDING SCALE (NOVOLOG) 1 VIAL SQ SCH (19:08)
[2021-11-07] MEDS: MELATONIN 5 MG TABLETS PO SCH (22:37)
[2021-11-07] MEDS: ATORVASTATIN CA 40 MG TABLET (FP) PO SCH (22:37)
[2021-11-07] MEDS: THIAMINE HCL 100 MG TABLET (FP) PO SCH (22:38)
[2021-11-08] MEDS: chlordiazePOXIDE HCL 25 MG CAPSULE PO SCH ×4 (06:32→22:26)
[2021-11-08] MEDS: hydrOXYzine PAMOATE 25 MG CAPSULE (FP) PO SCH ×5 (06:33→22:26)
[2021-11-08] MEDS: GABAPENTIN 100 MG CAPSULE PO SCH ×3 (06:33→22:26)
[2021-11-08] MEDS: metFORMIN HCL 500 MG TABLET (FP) PO SCH ×2 (06:33→17:38)
[2021-11-08] MEDS: LEVOTHYROXINE NA 25 MCG TABLET (FP) PO SCH (06:33)
[2021-11-08] MEDS: INSULIN SLIDING SCALE (NOVOLOG) 1 VIAL SQ SCH ×4 (07:17→21:57)
[2021-11-08] MEDS: ASPIRIN COATED 81 MG TABLET.EC PO SCH (10:46)
[2021-11-08] MEDS: PANTOPRAZOLE 40 MG TABLET PO SCH (10:46)
[2021-11-08] MEDS: NICOTINE POLACRILEX 4 MG GUM BUC PRN ×2 (10:53→15:57)
[2021-11-08] MEDS: NIFEdipine E.R 60 MG TABLET PO SCH (11:05)
[2021-11-08] MEDS: PRENATAL VITAMINS W/ FOLIC ACID TABLET (FP) PO SCH (14:13)
[2021-11-08] MEDS: THIAMINE HCL 100 MG TABLET (FP) PO SCH (22:26)
[2021-11-08] MEDS: ATORVASTATIN CA 40 MG TABLET (FP) PO SCH (22:26)
[2021-11-08] MEDS: MELATONIN 5 MG TABLETS PO SCH (22:26)
[2021-11-09] MEDS: GABAPENTIN 100 MG CAPSULE PO SCH ×3 (05:49→22:12)
[2021-11-09] MEDS: hydrOXYzine PAMOATE 25 MG CAPSULE (FP) PO SCH ×5 (05:49→22:13)
[2021-11-09] MEDS: chlordiazePOXIDE HCL 25 MG CAPSULE PO SCH ×4 (05:50→22:12)
[2021-11-09] MEDS: metFORMIN HCL 500 MG TABLET (FP) PO SCH ×2 (06:02→17:54)
[2021-11-09] MEDS: LEVOTHYROXINE NA 25 MCG TABLET (FP) PO SCH (06:02)
[2021-11-09] MEDS: INSULIN SLIDING SCALE (NOVOLOG) 1 VIAL SQ SCH ×4 (06:04→22:58)
[2021-11-09] MEDS: NICOTINE POLACRILEX 4 MG GUM BUC PRN (09:00)
[2021-11-09] MEDS ORDERED: methaDONE HCL 10 MG TABLET (FOR DETOX USE ONLY) PO ONE (10:00)
[2021-11-09] MEDS: ARIPiprazole 10 MG TABLET PO SCH (10:18)
[2021-11-09] MEDS: NIFEdipine E.R 60 MG TABLET PO SCH (10:18)
[2021-11-09] MEDS: PANTOPRAZOLE 40 MG TABLET PO SCH (10:18)
[2021-11-09] MEDS: ASPIRIN COATED 81 MG TABLET.EC PO SCH (10:18)
[2021-11-09] MEDS: PRENATAL VITAMINS W/ FOLIC ACID TABLET (FP) PO SCH (10:18)
[2021-11-09] MEDS ORDERED: INSULIN SLIDING SCALE (NOVOLOG) 1 VIAL SQ ONE (11:48)
[2021-11-09] MEDS: MELATONIN 5 MG TABLETS PO SCH (22:12)
[2021-11-09] MEDS: THIAMINE HCL 100 MG TABLET (FP) PO SCH (22:12)
[2021-11-09] MEDS: ATORVASTATIN CA 40 MG TABLET (FP) PO SCH (22:12)
[2021-11-10] MEDS ORDERED: chlordiazePOXIDE HCL 10 MG CAPSULE PO PRN
[2021-11-10] MEDS: INSULIN SLIDING SCALE (NOVOLOG) 1 VIAL SQ SCH ×4 (06:43→22:48)
[2021-11-10] MEDS: metFORMIN HCL 500 MG TABLET (FP) PO SCH ×2 (06:52→17:55)
[2021-11-10] MEDS: LEVOTHYROXINE NA 25 MCG TABLET (FP) PO SCH (06:53)
[2021-11-10] MEDS: GABAPENTIN 100 MG CAPSULE PO SCH ×3 (06:53→22:47)
[2021-11-10] MEDS: hydrOXYzine PAMOATE 25 MG CAPSULE (FP) PO SCH ×5 (07:04→22:52)
[2021-11-10] MEDS: chlordiazePOXIDE HCL 10 MG CAPSULE PO SCH ×4 (07:07→22:52)
[2021-11-10] MEDS: PRENATAL VITAMINS W/ FOLIC ACID TABLET (FP) PO SCH (11:02)
[2021-11-10] MEDS: ARIPiprazole 10 MG TABLET PO SCH (11:02)
[2021-11-10] MEDS: NIFEdipine E.R 60 MG TABLET PO SCH (13:15)
[2021-11-10] MEDS: PANTOPRAZOLE 40 MG TABLET PO SCH (13:15)
[2021-11-10] MEDS: ASPIRIN COATED 81 MG TABLET.EC PO SCH (13:15)
[2021-11-10] MEDS: THIAMINE HCL 100 MG TABLET (FP) PO SCH (22:46)
[2021-11-10] MEDS: ATORVASTATIN CA 40 MG TABLET (FP) PO SCH (22:47)
[2021-11-10] MEDS: MELATONIN 5 MG TABLETS PO SCH (22:47)
[2021-11-11] MEDS: hydrOXYzine PAMOATE 25 MG CAPSULE (FP) PO SCH ×5 (05:03→22:23)
[2021-11-11] MEDS: GABAPENTIN 100 MG CAPSULE PO SCH ×3 (05:03→22:23)
[2021-11-11] MEDS: chlordiazePOXIDE HCL 10 MG CAPSULE PO SCH ×2 (05:07→17:32)
[2021-11-11] MEDS: IBUPROFEN 600 MG TABLET (FP) PO PRN ×2 (05:08→22:24)
[2021-11-11] MEDS: NICOTINE POLACRILEX 4 MG GUM BUC PRN ×3 (05:16→17:10)
[2021-11-11] MEDS: metFORMIN HCL 500 MG TABLET (FP) PO SCH ×2 (06:33→17:31)
[2021-11-11] MEDS: INSULIN SLIDING SCALE (NOVOLOG) 1 VIAL SQ SCH ×4 (06:34→23:01)
[2021-11-11] MEDS: LEVOTHYROXINE NA 25 MCG TABLET (FP) PO SCH (06:34)
[2021-11-11] MEDS ORDERED: methaDONE HCL 10 MG TABLET (FOR DETOX USE ONLY) PO ONE (10:00)
[2021-11-11] MEDS: ASPIRIN COATED 81 MG TABLET.EC PO SCH (10:13)
[2021-11-11] MEDS: PANTOPRAZOLE 40 MG TABLET PO SCH (10:13)
[2021-11-11] MEDS: ARIPiprazole 10 MG TABLET PO SCH (10:13)
[2021-11-11] MEDS: NIFEdipine E.R 60 MG TABLET PO SCH (10:14)
[2021-11-11] MEDS: PRENATAL VITAMINS W/ FOLIC ACID TABLET (FP) PO SCH (10:14)
[2021-11-11 12:53] VITALS: RESP 18
[2021-11-11] MEDS: MELATONIN 5 MG TABLETS PO SCH (22:22)
[2021-11-11] MEDS: ATORVASTATIN CA 40 MG TABLET (FP) PO SCH (22:23)
[2021-11-11] MEDS: THIAMINE HCL 100 MG TABLET (FP) PO SCH (22:23)
[2021-11-12] MEDS ORDERED: chlordiazePOXIDE HCL 10 MG CAPSULE PO ONE (05:00)
[2021-11-12] MEDS: metFORMIN HCL 500 MG TABLET (FP) PO SCH (06:04)
[2021-11-12] MEDS: LEVOTHYROXINE NA 25 MCG TABLET (FP) PO SCH (06:04)
[2021-11-12] MEDS: GABAPENTIN 100 MG CAPSULE PO SCH (06:04)
[2021-11-12] MEDS: hydrOXYzine PAMOATE 25 MG CAPSULE (FP) PO SCH ×2 (06:05→09:34)
[2021-11-12] MEDS: INSULIN SLIDING SCALE (NOVOLOG) 1 VIAL SQ SCH (06:16)
[2021-11-12] MEDS: NICOTINE POLACRILEX 4 MG GUM BUC PRN (06:37)
[2021-11-12 09:03] VITALS: BP 118/63; PULSE 68; TEMP 98.2
[2021-11-12] MEDS: PANTOPRAZOLE 40 MG TABLET PO SCH (09:33)
[2021-11-12] MEDS: ASPIRIN COATED 81 MG TABLET.EC PO SCH (09:34)
[2021-11-12] MEDS: PRENATAL VITAMINS W/ FOLIC ACID TABLET (FP) PO SCH (09:34)
[2021-11-12] MEDS: ARIPiprazole 10 MG TABLET PO SCH (09:34)
[2021-11-12] MEDS: NIFEdipine E.R 60 MG TABLET PO SCH (09:34)
== END 2021-11-12 10:23 | disposition other institution (70) | DRG 773 ==
LOC: YASAS 11:07 → Y3N 12:59
PROVIDERS: ADMIT Allergy & Immunology; ATTEND Family Medicine Addiction Medicine
PROC: HZ2ZZZZ Detoxification Services for Substance Abuse Treatment (ICD-10-PCS; principal; 2021-11-07)
DX: F11.23 Opioid dependence with withdrawal (principal); F10.230 Alcohol dependence with withdrawal, uncomplicated; F12.20 Cannabis dependence, uncomplicated; F17.210 Nicotine dependence, cigarettes, uncomplicated; F25.9 Schizoaffective disorder, unspecified; F19.24 Other psychoactive substance dependence with psychoactive substance-induced mood disorder; E78.5 Hyperlipidemia, unspecified; E03.9 Hypothyroidism, unspecified; E11.42 Type 2 diabetes mellitus with diabetic polyneuropathy; Z79.4 Long term (current) use of insulin; I10 Essential (primary) hypertension; J45.40 Moderate persistent asthma, uncomplicated; E66.01 Morbid (severe) obesity due to excess calories; Z68.42 Body mass index [BMI] 45.0-49.9, adult; Z88.0 Allergy status to penicillin; Z91.013 Allergy to seafood
CPT/HCPCS: 81025; 82962; C9803-CS; U0003; U0005

== ENCOUNTER 2021-12-10 11:51 | Inpatient (IN) | payer OTHER ==
[2021-12-10 12:47] VITALS: BMI 48.2
[2021-12-10] MEDS ORDERED: BENZOCAINE/MENTHOL (CHLORASEPTIC ) LOZENGE MM PRN (13:25)
[2021-12-10] MEDS ORDERED: DICYCLOMINE HCL 10 MG CAPSULE PO PRN (13:25)
[2021-12-10] MEDS ORDERED: ONDANSETRON *ODT* 4 MG TABLET SL PRN (13:25)
[2021-12-10] MEDS ORDERED: MAGNESIUM CITRATE 300 ML BOTTLE PO PRN (13:25)
[2021-12-10] MEDS ORDERED: LORazepam 1 MG TABLET PO PRN (13:25)
[2021-12-10] MEDS ORDERED: METHOCARBAMOL 500 MG TABLET PO PRN (13:25)
[2021-12-10] MEDS ORDERED: ACETAMINOPHEN 325 MG TABLET (FP) PO PRN ×2 (13:25)
[2021-12-10] MEDS ORDERED: IBUPROFEN 600 MG TABLET (FP) PO PRN (13:25)
[2021-12-10] MEDS ORDERED: IBUPROFEN 400 MG TABLET (FP) PO PRN (13:25)
[2021-12-10] MEDS ORDERED: MAG HYDROX/AL HYDROX/SIMETH 30 ML UNIT-DOSE CUP PO PRN (13:25)
[2021-12-10] MEDS ORDERED: MAGNESIUM HYDROX 2400MG/30ML ORAL SUSPENSION 30 ML CUP PO PRN (13:25)
[2021-12-10] MEDS ORDERED: LOPERAMIDE HCL 2 MG CAPSULE PO PRN (13:25)
[2021-12-10] MEDS ORDERED: BISMUTH SUBSALICYLATE 262 MG/15 ML BTL PO PRN (13:25)
[2021-12-10] MEDS ORDERED: NALOXONE HCL (KLOXXADO) 8 MG SPRAY NS PRN (13:25)
[2021-12-10] MEDS ORDERED: NICOTINE 10 MG CARTRIDGE (INHALER) IH PRN (13:25)
[2021-12-10] MEDS ORDERED: PATIENT'S OWN MEDICATION (NON-FORMULARY) (Insulin Lispro [Admelog Solostar] 100 UNIT/ML In SQ SCH (13:30)
[2021-12-10] MEDS ORDERED: ALBUTEROL SO4 HFA INHALER IH PRN (13:30)
[2021-12-10] MEDS: GABAPENTIN 100 MG CAPSULE PO SCH ×2 (14:34→22:03)
[2021-12-10] MEDS: ASPIRIN COATED 81 MG TABLET.EC PO SCH (14:34)
[2021-12-10] MEDS: hydrOXYzine PAMOATE 25 MG CAPSULE (FP) PO SCH ×3 (14:35→22:03)
[2021-12-10] MEDS: LEVOTHYROXINE NA 25 MCG TABLET (FP) PO SCH (14:35)
[2021-12-10] MEDS: PRENATAL VITAMINS W/ FOLIC ACID TABLET (FP) PO SCH (14:35)
[2021-12-10] MEDS: NICOTINE POLACRILEX 4 MG GUM BUC PRN ×2 (14:59→16:59)
[2021-12-10] MEDS: NIFEdipine E.R 60 MG TABLET PO SCH (14:59)
[2021-12-10] MEDS: INSULIN SLIDING SCALE (NOVOLOG) 1 VIAL SQ SCH ×2 (16:55→22:05)
[2021-12-10] MEDS: LORazepam 2 MG TABLET PO SCH ×2 (17:07→22:03)
[2021-12-10] MEDS ORDERED: PATIENT'S OWN MEDICATION (NON-FORMULARY) (Insulin Glargine,Hum.Rec.Anlog [Basaglar Kwikpen SQ SCH (22:00)
[2021-12-10] MEDS: QUEtiapine FUMARATE 200 MG TABLET PO SCH (22:03)
[2021-12-10] MEDS: MELATONIN 5 MG TABLETS PO SCH (22:03)
[2021-12-10] MEDS: THIAMINE HCL 100 MG TABLET (FP) PO SCH (22:03)
[2021-12-10] MEDS: ATORVASTATIN CA 40 MG TABLET (FP) PO SCH (22:03)
[2021-12-11] MEDS: LORazepam 2 MG TABLET PO SCH ×4 (06:59→22:35)
[2021-12-11] MEDS: metFORMIN HCL 500 MG TABLET (FP) PO SCH ×2 (07:00→18:05)
[2021-12-11] MEDS: GABAPENTIN 100 MG CAPSULE PO SCH ×3 (07:00→22:35)
[2021-12-11] MEDS: INSULIN SLIDING SCALE (NOVOLOG) 1 VIAL SQ SCH ×2 (07:00→17:40)
[2021-12-11] MEDS ORDERED: INSULIN SLIDING SCALE (NOVOLOG) 1 VIAL SQ ONE (07:03)
[2021-12-11] MEDS: hydrOXYzine PAMOATE 25 MG CAPSULE (FP) PO SCH ×5 (07:04→22:35)
[2021-12-11] MEDS: PRENATAL VITAMINS W/ FOLIC ACID TABLET (FP) PO SCH (10:17)
[2021-12-11] MEDS: PANTOPRAZOLE 40 MG TABLET PO SCH (10:17)
[2021-12-11] MEDS: LEVOTHYROXINE NA 25 MCG TABLET (FP) PO SCH (10:17)
[2021-12-11] MEDS: NIFEdipine E.R 60 MG TABLET PO SCH (10:17)
[2021-12-11] MEDS: ASPIRIN COATED 81 MG TABLET.EC PO SCH (10:17)
[2021-12-11] MEDS: NICOTINE POLACRILEX 4 MG GUM BUC PRN (14:33)
[2021-12-11] MEDS: MELATONIN 5 MG TABLETS PO SCH (22:34)
[2021-12-11] MEDS: THIAMINE HCL 100 MG TABLET (FP) PO SCH (22:34)
[2021-12-11] MEDS: ATORVASTATIN CA 40 MG TABLET (FP) PO SCH (22:35)
[2021-12-11] MEDS: QUEtiapine FUMARATE 200 MG TABLET PO SCH (22:35)
[2021-12-12] MEDS: LORazepam 1 MG TABLET PO SCH ×2 (05:43→10:36)
[2021-12-12] MEDS: hydrOXYzine PAMOATE 25 MG CAPSULE (FP) PO SCH ×2 (05:43→09:48)
[2021-12-12] MEDS: GABAPENTIN 100 MG CAPSULE PO SCH (05:43)
[2021-12-12] MEDS: INSULIN SLIDING SCALE (NOVOLOG) 1 VIAL SQ SCH (06:38)
[2021-12-12] MEDS: metFORMIN HCL 500 MG TABLET (FP) PO SCH (06:38)
[2021-12-12 09:27] VITALS: BP 139/82; PULSE 97; RESP 16; TEMP 97.1
[2021-12-12] MEDS: PANTOPRAZOLE 40 MG TABLET PO SCH (09:48)
[2021-12-12] MEDS: PRENATAL VITAMINS W/ FOLIC ACID TABLET (FP) PO SCH (09:48)
[2021-12-12] MEDS: LEVOTHYROXINE NA 25 MCG TABLET (FP) PO SCH (09:48)
[2021-12-12] MEDS: ASPIRIN COATED 81 MG TABLET.EC PO SCH (09:48)
[2021-12-12] MEDS: NIFEdipine E.R 60 MG TABLET PO SCH (09:48)
[2021-12-13] MEDS ORDERED: LORazepam 0.5 MG TABLET PO PRN
[2021-12-13] MEDS ORDERED: LORazepam 0.5 MG TABLET PO SCH (05:00)
[2021-12-14] MEDS ORDERED: LORazepam 0.5 MG TABLET PO ONE (05:00)
== END 2021-12-12 11:36 | disposition left against medical advice (07) | DRG 770 ==
LOC: YASAS 11:51 → Y3N 13:40
PROVIDERS: ADMIT Allergy & Immunology; ATTEND Surgery
PROC: HZ2ZZZZ Detoxification Services for Substance Abuse Treatment (ICD-10-PCS; principal; 2021-12-10)
DX: F10.230 Alcohol dependence with withdrawal, uncomplicated (principal); F12.20 Cannabis dependence, uncomplicated; F17.210 Nicotine dependence, cigarettes, uncomplicated; F25.9 Schizoaffective disorder, unspecified; F19.24 Other psychoactive substance dependence with psychoactive substance-induced mood disorder; I10 Essential (primary) hypertension; J44.9 Chronic obstructive pulmonary disease, unspecified; K21.9 Gastro-esophageal reflux disease without esophagitis; E11.40 Type 2 diabetes mellitus with diabetic neuropathy, unspecified; Z79.4 Long term (current) use of insulin; E66.01 Morbid (severe) obesity due to excess calories; Z68.42 Body mass index [BMI] 45.0-49.9, adult; Z86.19 Personal history of other infectious and parasitic diseases; Z88.0 Allergy status to penicillin; Z91.013 Allergy to seafood
CPT/HCPCS: 81025; 82962; C9803-CS; U0003; U0005

== ENCOUNTER 2023-05-05 19:22 | Inpatient (IN) | payer OTHER ==
[2023-05-05 20:59] VITALS: BMI 33.3
[2023-05-05] MEDS ORDERED: ALBUTEROL SO4 HFA INHALER IH PRN (23:04)
[2023-05-05] MEDS ORDERED: IBUPROFEN 400 MG TABLET (FP) PO PRN (23:08)
[2023-05-05] MEDS ORDERED: DICYCLOMINE HCL 10 MG CAPSULE PO PRN (23:08)
[2023-05-05] MEDS ORDERED: MAGNESIUM HYDROX 2400MG/30ML ORAL SUSPENSION 30 ML CUP PO PRN (23:08)
[2023-05-05] MEDS ORDERED: BISMUTH SUBSALICYLATE 524 MG/30 ML PO PRN (23:08)
[2023-05-05] MEDS ORDERED: MAG HYDROX/AL HYDROX/SIMETH 30 ML UNIT-DOSE CUP PO PRN (23:08)
[2023-05-05] MEDS ORDERED: BENZOCAINE/MENTHOL (CHLORASEPTIC ) LOZENGE MM PRN (23:08)
[2023-05-05] MEDS ORDERED: LOPERAMIDE HCL 2 MG CAPSULE PO PRN (23:08)
[2023-05-05] MEDS ORDERED: ONDANSETRON *ODT* 4 MG TABLET SL PRN (23:08)
[2023-05-05] MEDS ORDERED: POLYETHYLENE GLYCOL (HEALTHYLAX) 3350 17 GM PACKET PO PRN (23:08)
[2023-05-05] MEDS ORDERED: ACETAMINOPHEN 325 MG TABLET (FP) PO PRN (23:08)
[2023-05-05] MEDS ORDERED: P-EPHED 60MG/TRIPROLIDI 2.5MG TABLET PO PRN (23:08)
[2023-05-05] MEDS ORDERED: BENZONATATE 200 MG CAPSULE PO PRN (23:08)
[2023-05-05] MEDS ORDERED: guaiFENesin 600 MG TABLET.ER (FP) PO PRN (23:08)
[2023-05-06] MEDS: INSULIN ASPART SLIDING SCALE (NOVOLOG) 1 VIAL SQ SCH (01:13)
[2023-05-06] MEDS: cloNIDine HCL 0.1 MG TABLET PO ONE (01:56)
[2023-05-06] MEDS: MELATONIN 5 MG TABLETS PO ONE (02:50)
[2023-05-06] MEDS: METHOCARBAMOL 500 MG TABLET PO PRN (06:06)
[2023-05-06] MEDS ORDERED: chlordiazePOXIDE HCL 25 MG CAPSULE PO PRN (09:03)
[2023-05-06] MEDS: NIFEdipine E.R 60 MG TABLET PO SCH (09:20)
[2023-05-06] MEDS: PANTOPRAZOLE 40 MG TABLET PO SCH (09:20)
[2023-05-06] MEDS: PRENATAL VITAMINS W/ FOLIC ACID TABLET (FP) PO SCH (09:20)
[2023-05-06] MEDS: ASPIRIN COATED 81 MG TABLET.EC PO SCH (09:20)
[2023-05-06] MEDS: NICOTINE POLACRILEX 2 MG GUM BUC PRN (09:43)
[2023-05-06] MEDS: chlordiazePOXIDE HCL 25 MG CAPSULE PO SCH (10:01)
[2023-05-06] MEDS: SERTRALINE HCL 50 MG TABLET (FP) PO SCH (10:48)
[2023-05-06] MEDS: OXcarbazepine 150 MG TABLET (UD) PO SCH (10:52)
[2023-05-06] MEDS: ARIPIPRAZOLE (ABILIFY MAINTENA) 400 MG DISPENSE SYRINGE IM ONE (11:00)
[2023-05-06 12:14] LABS: HEMATOCRIT 41.7 % (32.4-45.2); HEMOGLOBIN 14.3 GM/dL (10.7-15.3); MCH 30.8 pg (25.7-33.7); MCHC 34.4 g/dl (32.0-36.0); MEAN CELL VOLUME 89.6 fl (80-96); MEAN PLT VOLUME 8.8 fl (7.5-11.1); PLATELET COUNT 363 10^3/uL (134-434); RBC 4.65 M/mm3 (3.60-5.2); RDW 14.7 % (11.6-15.6); WHITE BLOOD COUNT 6.7 K/mm3 (4.0-10.0)
[2023-05-06 13:25] LABS: POTASSIUM 3.8 mmol/L (3.5-5.1)
[2023-05-06 13:26] LABS: CALCIUM 9.5 mg/dL (8.5-10.1)
[2023-05-06 13:27] LABS: ALBUMIN 3.3 g/dl (3.4-5.0); BLOOD UREA NITROGEN 5.7 mg/dL (7-18)
[2023-05-06 13:30] LABS: CREATININE 0.6 mg/dL (0.55-1.3)
[2023-05-06 13:32] LABS: BILIRUBIN,TOTAL 0.7 mg/dL (0.2-1); TOT PROT 7.7 g/dl (6.4-8.2)
[2023-05-06] MEDS: cloNIDine HCL 0.1 MG TABLET PO PRN (19:11)
[2023-05-06] MEDS ORDERED: INSULIN (NOVOLOG) ASPART 100 UNITS/ML 10ML VIAL ONE (22:52)
[2023-05-06] MEDS: THIAMINE HCL 100 MG TABLET (FP) PO SCH (22:55)
[2023-05-06] MEDS: QUEtiapine FUMARATE 200 MG TABLET PO SCH (22:55)
[2023-05-06] MEDS: ATORVASTATIN CA 40 MG TABLET (FP) PO SCH (22:55)
[2023-05-06] MEDS: MELATONIN 5 MG TABLETS PO SCH (22:55)
[2023-05-07] MEDS: chlordiazePOXIDE HCL 25 MG CAPSULE PO SCH (05:35)
[2023-05-07] MEDS: LEVOTHYROXINE NA 25 MCG TABLET (FP) PO SCH (06:32)
[2023-05-07] MEDS ORDERED: INSULIN (NOVOLOG) ASPART 100 UNITS/ML 10ML VIAL ONE (17:05)
[2023-05-07] MEDS: metFORMIN HCL 500 MG TABLET (FP) PO SCH (17:18)
[2023-05-07] MEDS: INSULIN (LEVEMIR) 100 UNITS/ML UNITS SQ SCH (22:17)
[2023-05-08] MEDS ORDERED: chlordiazePOXIDE HCL 10 MG CAPSULE PO PRN
[2023-05-08] MEDS: chlordiazePOXIDE HCL 10 MG CAPSULE PO SCH (05:40)
[2023-05-08] MEDS: NIFEdipine E.R. 90 MG TABLET PO SCH (09:56)
[2023-05-09] MEDS: chlordiazePOXIDE HCL 10 MG CAPSULE PO SCH (05:49)
[2023-05-09] MEDS: IBUPROFEN 600 MG TABLET (FP) PO PRN (13:24)
[2023-05-10] MEDS: chlordiazePOXIDE HCL 10 MG CAPSULE PO ONE (05:15)
[2023-05-12 06:43] VITALS: RESP 16
[2023-05-12 09:33] VITALS: BP 119/74; PULSE 68; TEMP 97.8
== END 2023-05-12 12:06 | disposition other institution (70) | DRG 775 ==
LOC: YASAS 19:22 → Y6N 23:40
PROVIDERS: ADMIT Allergy & Immunology; ATTEND Surgery
PROC: HZ2ZZZZ Detoxification Services for Substance Abuse Treatment (ICD-10-PCS; principal; 2023-05-05)
DX: F10.230 Alcohol dependence with withdrawal, uncomplicated (principal); F12.20 Cannabis dependence, uncomplicated; F17.210 Nicotine dependence, cigarettes, uncomplicated; F25.1 Schizoaffective disorder, depressive type; F19.282 Other psychoactive substance dependence with psychoactive substance-induced sleep disorder; E03.9 Hypothyroidism, unspecified; E78.5 Hyperlipidemia, unspecified; E11.9 Type 2 diabetes mellitus without complications; Z79.4 Long term (current) use of insulin; Z79.84 Long term (current) use of oral hypoglycemic drugs; J45.20 Mild intermittent asthma, uncomplicated; J44.9 Chronic obstructive pulmonary disease, unspecified; Z88.0 Allergy status to penicillin
CPT/HCPCS: 36415; 80053; 80305; 81025; 82962; 85027; 86780; 87635

== ENCOUNTER 2023-05-12 12:20 | Inpatient (IN) | payer OTHER ==
[~2023-05-12 12:20] MED LIST: ALBUTEROL SO4 HFA INHALER IH PRN; BENZOCAINE/MENTHOL (CHLORASEPTIC ) LOZENGE MM PRN; BENZONATATE 200 MG CAPSULE PO PRN; NICOTINE 7 MG/24 HOURS TOPICAL PATCH TD PRN; guaiFENesin 600 MG TABLET.ER (FP) PO PRN
[2023-05-12] MEDS: NICOTINE POLACRILEX 2 MG GUM BUC PRN (13:21)
[2023-05-12] MEDS: MAG HYDROX/AL HYDROX/SIMETH 30 ML UNIT-DOSE CUP PO PRN (13:21)
[2023-05-12] MEDS: ACETAMINOPHEN 325 MG TABLET (FP) PO PRN (14:21)
[2023-05-12] MEDS: METHOCARBAMOL 500 MG TABLET PO PRN (14:21)
[2023-05-12] MEDS: metFORMIN HCL 500 MG TABLET (FP) PO SCH (16:48)
[2023-05-12] MEDS: MAGNESIUM HYDROX 2400MG/30ML ORAL SUSPENSION 30 ML CUP PO PRN (17:52)
[2023-05-12] MEDS: INSULIN (LEVEMIR) 100 UNITS/ML UNITS SQ SCH (20:59)
[2023-05-12] MEDS: THIAMINE HCL 100 MG TABLET (FP) PO SCH (21:01)
[2023-05-12] MEDS: OXcarbazepine 150 MG TABLET (UD) PO SCH (21:01)
[2023-05-12] MEDS: ATORVASTATIN CA 40 MG TABLET (FP) PO SCH (21:01)
[2023-05-12] MEDS: MELATONIN 5 MG TABLETS PO SCH (21:01)
[2023-05-12] MEDS: IBUPROFEN 600 MG TABLET (FP) PO PRN (21:03)
[2023-05-12] MEDS ORDERED: OXcarbazepine 300 MG/5 ML UNIT DOSE CUPS PO SCH (22:00)
[2023-05-13] MEDS: hydrOXYzine PAMOATE 25 MG CAPSULE (FP) PO PRN (00:04)
[2023-05-13] MEDS: LEVOTHYROXINE NA 25 MCG TABLET (FP) PO SCH (06:21)
[2023-05-13] MEDS: PANTOPRAZOLE 40 MG TABLET PO SCH (06:21)
[2023-05-13] MEDS: SERTRALINE HCL 50 MG TABLET (FP) PO SCH (10:00)
[2023-05-13] MEDS: PRENATAL VITAMINS W/ FOLIC ACID TABLET (FP) PO SCH (10:00)
[2023-05-13] MEDS: NIFEdipine E.R. 90 MG TABLET PO SCH (10:00)
[2023-05-13] MEDS: ASPIRIN 81 MG CHEWABLE TABLETS PO SCH (10:00)
[2023-05-13] MEDS: PNEUMOC 20-VAL CONJ-DIP CRM/PF 0.5 ML SYRINGE IM ONE (13:24)
[2023-05-13 13:36] LABS: HIV INTERPRETATION NEGATIVE (NEGATIVE)
[2023-05-13] MEDS: QUEtiapine FUMARATE 200 MG TABLET PO SCH (21:30)
[2023-05-14] MEDS: POLYETHYLENE GLYCOL (HEALTHYLAX) 3350 17 GM PACKET PO PRN (11:57)
[2023-05-15] MEDS: INSULIN (NOVOLOG) ASPART 100 UNITS/ML 10ML VIAL SQ ONE (09:57)
[2023-05-15] MEDS: INSULIN ASPART SLIDING SCALE (NOVOLOG) 1 VIAL SQ SCH (11:49)
[2023-05-15] MEDS: IBUPROFEN 400 MG TABLET (FP) PO PRN (18:37)
[2023-05-15] MEDS: QUEtiapine FUMARATE 300 MG TABLET PO SCH (21:11)
[2023-05-15] MEDS: INSULIN (LEVEMIR) 100 UNITS/ML UNITS SQ SCH (21:13)
[2023-05-17] MEDS ORDERED: INSULIN (NOVOLOG) ASPART 100 UNITS/ML 10ML VIAL ONE (16:21)
[2023-05-18] MEDS: METHOCARBAMOL 750 MG TABLET PO SCH (14:04)
[2023-05-18] MEDS: INSULIN ASPART SLIDING SCALE (NOVOLOG) 1 VIAL SQ SCH (16:38)
[2023-05-20] MEDS ORDERED: INSULIN (NOVOLOG) ASPART 100 UNITS/ML 10ML VIAL ONE ×2 (07:42→16:21)
[2023-05-20] MEDS: METHOCARBAMOL 750 MG TABLET PO PRN (15:57)
[2023-05-22] MEDS ORDERED: METHOCARBAMOL 500 MG TABLET PO PRN (18:47)
[2023-05-22] MEDS: METHOCARBAMOL 500 MG TABLET PO PRN (18:51)
[2023-05-22] MEDS ORDERED: INSULIN (NOVOLOG) ASPART 100 UNITS/ML 10ML VIAL ONE (20:18)
[2023-05-25] MEDS: LOPERAMIDE HCL 2 MG CAPSULE PO PRN (11:32)
[2023-05-25] MEDS: METHOCARBAMOL 750 MG TABLET PO PRN (12:44)
[2023-05-25] MEDS: METHOCARBAMOL 500 MG TABLET PO PRN (19:17)
[2023-05-26] MEDS: SIMETHICONE 80 MG TAB.CHEW (FP) PO ONE (14:15)
[2023-05-27] MEDS: hydrALAZINE HCL 10 MG TABLET PO SCH (14:05)
[2023-05-28] MEDS: LISINOPRIL 5 MG TABLET PO SCH (09:48)
[2023-05-28] MEDS ORDERED: amLODIPine BESYLATE 2.5 MG TABLET (FP) PO SCH (10:00)
[2023-05-28] MEDS: METHOCARBAMOL 750 MG TABLET PO PRN (15:30)
[2023-05-28] MEDS ORDERED: INSULIN (NOVOLOG) ASPART 100 UNITS/ML 10ML VIAL ONE (21:56)
[2023-05-30 07:24] VITALS: RESP 18
[2023-05-30] MEDS ORDERED: INSULIN (NOVOLOG) ASPART 100 UNITS/ML 10ML VIAL ONE (16:30)
[2023-06-01 07:19] VITALS: BP 157/77; PULSE 97; TEMP 97.5
== END 2023-06-01 07:19 | disposition home or self-care (01) | DRG 772 ==
LOC: YASAS 12:20 → Y5N 12:21
PROVIDERS: ADMIT Allergy & Immunology; ATTEND Psychiatry & Neurology Pain Medicine
PROC: HZ42ZZZ Group Counseling for Substance Abuse Treatment, Cognitive-Behavioral (ICD-10-PCS; principal; 2023-05-11)
DX: F10.20 Alcohol dependence, uncomplicated (principal); F12.20 Cannabis dependence, uncomplicated; F17.210 Nicotine dependence, cigarettes, uncomplicated; F25.1 Schizoaffective disorder, depressive type; I10 Essential (primary) hypertension; E78.5 Hyperlipidemia, unspecified; E03.9 Hypothyroidism, unspecified; E11.9 Type 2 diabetes mellitus without complications; Z79.4 Long term (current) use of insulin; Z79.84 Long term (current) use of oral hypoglycemic drugs; J45.909 Unspecified asthma, uncomplicated; K21.9 Gastro-esophageal reflux disease without esophagitis; G47.00 Insomnia, unspecified; Z86.19 Personal history of other infectious and parasitic diseases; Z88.0 Allergy status to penicillin
CPT/HCPCS: 36415; 82465; 82962; 84484; 87389; 90677; 93005; 93010

== ENCOUNTER 2023-12-09 13:28 | Inpatient (IN) | payer OTHER ==
[2023-12-09 14:49] VITALS: BMI 26.4
[2023-12-09] MEDS ORDERED: DICYCLOMINE HCL 10 MG CAPSULE PO PRN (15:59)
[2023-12-09] MEDS ORDERED: BENZOCAINE/MENTHOL (CHLORASEPTIC ) LOZENGE MM PRN (15:59)
[2023-12-09] MEDS ORDERED: ONDANSETRON *ODT* 4 MG TABLET SL PRN (15:59)
[2023-12-09] MEDS ORDERED: IBUPROFEN 600 MG TABLET (FP) PO PRN (15:59)
[2023-12-09] MEDS ORDERED: guaiFENesin 600 MG TABLET.ER (FP) PO PRN (15:59)
[2023-12-09] MEDS ORDERED: NALOXONE (NARCAN) HCL 4 MG/0.1 ML SPRAY NS PRN (15:59)
[2023-12-09] MEDS ORDERED: MAGNESIUM HYDROX 2400MG/30ML ORAL SUSPENSION 30 ML CUP PO PRN (15:59)
[2023-12-09] MEDS ORDERED: ACETAMINOPHEN 325 MG TABLET (FP) PO PRN (15:59)
[2023-12-09] MEDS ORDERED: hydrOXYzine PAMOATE 25 MG CAPSULE (FP) PO PRN (15:59)
[2023-12-09] MEDS ORDERED: BISMUTH SUBSALICYLATE 524 MG/30 ML PO PRN (15:59)
[2023-12-09] MEDS ORDERED: IBUPROFEN 400 MG TABLET (FP) PO PRN (15:59)
[2023-12-09] MEDS ORDERED: LORazepam 1 MG TABLET PO PRN (15:59)
[2023-12-09] MEDS ORDERED: LOPERAMIDE HCL 2 MG CAPSULE PO PRN (15:59)
[2023-12-09] MEDS ORDERED: BENZONATATE 200 MG CAPSULE PO PRN (15:59)
[2023-12-09] MEDS ORDERED: NALOXONE (NYS OPIOID OVERDOSE PROGRAM) 4 MG/0.1 ML SPRAY NS PRN (15:59)
[2023-12-09] MEDS ORDERED: POLYETHYLENE GLYCOL (HEALTHYLAX) 3350 17 GM PACKET PO PRN (15:59)
[2023-12-09] MEDS ORDERED: ALBUTEROL SO4 HFA INHALER IH PRN (16:01)
[2023-12-09] MEDS ORDERED: LORazepam 2 MG TABLET ONE (17:41)
[2023-12-09] MEDS: LORazepam 2 MG TABLET PO SCH (17:53)
[2023-12-09] MEDS ORDERED: INSULIN (NOVOLOG) ASPART 100 UNITS/ML 10ML VIAL ONE (18:01)
[2023-12-09] MEDS: INSULIN (NOVOLOG) ASPART 100 UNITS/ML 10ML VIAL SQ SCH (18:07)
[2023-12-09] MEDS: MAG HYDROX/AL HYDROX/SIMETH 30 ML UNIT-DOSE CUP PO PRN (18:42)
[2023-12-09] MEDS: NICOTINE 14 MG/24 HOURS TOPICAL PATCH TD SCH (18:43)
[2023-12-09] MEDS: PRENATAL VITAMINS W/ FOLIC ACID TABLET (FP) PO SCH (18:43)
[2023-12-09] MEDS: metFORMIN HCL 500 MG TABLET (FP) PO SCH (18:44)
[2023-12-09] MEDS: cloNIDine HCL 0.1 MG TABLET PO ONE (19:00)
[2023-12-09] MEDS: PANTOPRAZOLE 40 MG TABLET PO ONE (19:29)
[2023-12-09] MEDS: metroNIDAZOLE 500 MG TABLET PO ONE (21:33)
[2023-12-09] MEDS: FLUCONAZOLE 150 MG TABLET PO ONE (21:33)
[2023-12-09] MEDS: INSULIN (LEVEMIR) 100 UNITS/ML UNITS SQ SCH (22:37)
[2023-12-09] MEDS: THIAMINE 100 MG TABLET PO SCH (22:37)
[2023-12-09] MEDS: MELATONIN 5 MG TABLETS PO SCH (22:38)
[2023-12-09] MEDS: ATORVASTATIN CA 40 MG TABLET (FP) PO SCH (22:41)
[2023-12-10] MEDS: LEVOTHYROXINE NA 25 MCG TABLET (FP) PO SCH (07:24)
[2023-12-10] MEDS ORDERED: NIFEdipine E.R. 90 MG TABLET PO SCH (10:00)
[2023-12-10] MEDS: PANTOPRAZOLE 40 MG TABLET PO SCH (10:08)
[2023-12-10] MEDS: LISINOPRIL 5 MG TABLET PO SCH (10:08)
[2023-12-10] MEDS: amLODIPine BESYLATE 2.5 MG TABLET (FP) PO SCH (10:08)
[2023-12-10] MEDS: ASPIRIN 81 MG CHEWABLE TABLETS PO SCH (10:08)
[2023-12-10 12:02] LABS: HEMATOCRIT 42.4 % (32.4-45.2); HEMOGLOBIN 14.1 GM/dL (10.7-15.3); MCH 30.2 pg (25.7-33.7); MCHC 33.3 g/dl (32.0-36.0); MEAN CELL VOLUME 90.8 fl (80-96); MEAN PLT VOLUME 8.3 fl (7.5-11.1); PLATELET COUNT 297 10^3/uL (134-434); RBC 4.67 M/mm3 (3.60-5.2); RDW 14.8 % (11.6-15.6); WHITE BLOOD COUNT 6.3 K/mm3 (4.0-10.0)
[2023-12-10 13:19] LABS: CHLORIDE 102 mmol/L (98-107); POTASSIUM 3.9 mmol/L (3.5-5.1); SODIUM 135 mmol/L (136-145)
[2023-12-10 13:24] LABS: ANION GAP 6 mmol/L (4-13); BLOOD UREA NITROGEN 18.3 mg/dL (7-18); CALCIUM 9.1 mg/dL (8.5-10.1); CO2 26 mmol/L (21-32); GLUCOSE,RANDOM 169 mg/dL (74-106)
[2023-12-10 13:27] LABS: CREATININE 0.9 mg/dL (0.55-1.3); SGOT/AST 50 U/L (15-37); SGPT/ALT 41 U/L (13-61)
[2023-12-10 13:29] LABS: BILIRUBIN,TOTAL 0.8 mg/dL (0.2-1); TOT PROT 6.9 g/dl (6.4-8.2)
[2023-12-10 13:30] LABS: ALK PHOS 131 U/L (45-117)
[2023-12-10] MEDS: METHOCARBAMOL 500 MG TABLET PO PRN (22:10)
[2023-12-10] MEDS: INSULIN ASPART SLIDING SCALE (NOVOLOG) 1 VIAL SQ SCH (22:36)
[2023-12-11] MEDS: LORazepam 1 MG TABLET PO SCH (05:38)
[2023-12-11] MEDS: amLODIPine BESYLATE 5 MG TABLET (FP) PO ONE (20:56)
[2023-12-11] MEDS ORDERED: QUEtiapine FUMARATE 200 MG TABLET PO SCH (22:00)
[2023-12-11] MEDS: QUETIAPINE FUMARATE 200 MG, QUETIAPINE FUMARATE 50 MG PO SCH (22:46)
[2023-12-12] MEDS ORDERED: LORazepam 0.5 MG TABLET PO PRN
[2023-12-12] MEDS: LORazepam 0.5 MG TABLET PO SCH (05:26)
[2023-12-12 06:37] VITALS: RESP 16
[2023-12-12] MEDS: ARIPiprazole 10 MG TABLET PO SCH (09:23)
[2023-12-12 10:38] VITALS: TEMP 98
[2023-12-12 10:39] VITALS: BP 157/104; PULSE 90
[2023-12-13] MEDS ORDERED: LORazepam 0.5 MG TABLET PO ONE (05:00)
== END 2023-12-12 11:43 | disposition home or self-care (01) | DRG 775 ==
LOC: YASAS 13:28 → Y3N 17:29
PROVIDERS: ADMIT Allergy & Immunology; ATTEND Allergy & Immunology
PROC: HZ2ZZZZ Detoxification Services for Substance Abuse Treatment (ICD-10-PCS; principal; 2023-12-09)
DX: F10.230 Alcohol dependence with withdrawal, uncomplicated (principal); F12.20 Cannabis dependence, uncomplicated; F25.1 Schizoaffective disorder, depressive type; F32.A Depression, unspecified; I10 Essential (primary) hypertension; E03.9 Hypothyroidism, unspecified; E78.2 Mixed hyperlipidemia; E11.9 Type 2 diabetes mellitus without complications; Z79.4 Long term (current) use of insulin; Z79.84 Long term (current) use of oral hypoglycemic drugs; Z88.0 Allergy status to penicillin
CPT/HCPCS: 36415; 80053; 80305; 80307; 82962; 85027; 86780; 93005; 93010

== ENCOUNTER 2024-01-09 10:53 | Inpatient (IN) | payer OTHER ==
[2024-01-09 11:43] VITALS: BMI 29.3
[2024-01-09] MEDS ORDERED: LORazepam 1 MG TABLET PO PRN (11:53)
[2024-01-09] MEDS ORDERED: BENZONATATE 200 MG CAPSULE PO PRN (11:55)
[2024-01-09] MEDS ORDERED: DICYCLOMINE HCL 10 MG CAPSULE PO PRN (11:55)
[2024-01-09] MEDS ORDERED: MAGNESIUM HYDROX 2400MG/30ML ORAL SUSPENSION 30 ML CUP PO PRN (11:55)
[2024-01-09] MEDS ORDERED: LOPERAMIDE HCL 2 MG CAPSULE PO PRN (11:55)
[2024-01-09] MEDS ORDERED: BENZOCAINE/MENTHOL (CHLORASEPTIC ) LOZENGE MM PRN (11:55)
[2024-01-09] MEDS ORDERED: BISMUTH SUBSALICYLATE 524 MG/30 ML PO PRN (11:55)
[2024-01-09] MEDS ORDERED: POLYETHYLENE GLYCOL (HEALTHYLAX) 3350 17 GM PACKET PO PRN (11:55)
[2024-01-09] MEDS ORDERED: hydrOXYzine PAMOATE 25 MG CAPSULE (FP) PO PRN (11:55)
[2024-01-09] MEDS ORDERED: IBUPROFEN 400 MG TABLET (FP) PO PRN (11:55)
[2024-01-09] MEDS ORDERED: NICOTINE POLACRILEX 2 MG LOZENGE BC PRN (11:55)
[2024-01-09] MEDS ORDERED: IBUPROFEN 600 MG TABLET (FP) PO PRN (11:55)
[2024-01-09] MEDS ORDERED: guaiFENesin 600 MG TABLET.ER (FP) PO PRN (11:55)
[2024-01-09] MEDS ORDERED: MAG HYDROX/AL HYDROX/SIMETH 30 ML UNIT-DOSE CUP PO PRN (11:55)
[2024-01-09] MEDS ORDERED: ONDANSETRON *ODT* 4 MG TABLET SL PRN (11:55)
[2024-01-09] MEDS ORDERED: ALBUTEROL SO4 HFA INHALER IH PRN (11:57)
[2024-01-09] MEDS: INSULIN ASPART SLIDING SCALE (NOVOLOG) 1 VIAL SQ SCH (12:16)
[2024-01-09] MEDS ORDERED: LORazepam 2 MG TABLET ONE (12:17)
[2024-01-09] MEDS ORDERED: ASPIRIN 81 MG CHEWABLE TABLETS ONE (12:17)
[2024-01-09] MEDS: LORazepam 2 MG TABLET PO ONE (12:18)
[2024-01-09] MEDS: ASPIRIN 81 MG CHEWABLE TABLETS PO SCH (12:18)
[2024-01-09] MEDS: PANTOPRAZOLE 40 MG TABLET PO SCH (13:58)
[2024-01-09] MEDS: LORazepam 2 MG TABLET PO SCH (17:20)
[2024-01-09] MEDS: metFORMIN HCL 500 MG TABLET (FP) PO SCH (17:20)
[2024-01-09] MEDS: METHOCARBAMOL 500 MG TABLET PO PRN (17:21)
[2024-01-09] MEDS: MELATONIN 5 MG TABLETS PO SCH (22:03)
[2024-01-09] MEDS: ATORVASTATIN CA 40 MG TABLET (FP) PO SCH (22:04)
[2024-01-09] MEDS: THIAMINE 100 MG TABLET PO SCH (22:04)
[2024-01-10] MEDS: LEVOTHYROXINE NA 25 MCG TABLET (FP) PO SCH (06:19)
[2024-01-10 06:52] VITALS: RESP 16
[2024-01-10 08:48] VITALS: BP 150/90; PULSE 80; TEMP 98.1
[2024-01-10] MEDS: PRENATAL VITAMINS W/ FOLIC ACID TABLET (FP) PO SCH (09:11)
[2024-01-10] MEDS: ACETAMINOPHEN 325 MG TABLET (FP) PO PRN (09:11)
[2024-01-10] MEDS: LISINOPRIL 5 MG TABLET PO SCH (09:11)
[2024-01-10] MEDS: amLODIPine BESYLATE 2.5 MG TABLET (FP) PO SCH (09:11)
[2024-01-10] MEDS: NICOTINE POLACRILEX 2 MG GUM BUC PRN (09:12)
[2024-01-10] MEDS: ARIPiprazole 10 MG TABLET PO SCH (10:57)
[2024-01-10] MEDS: NALOXONE (NYS OPIOID OVERDOSE PROGRAM) 4 MG/0.1 ML SPRAY NS PRN (12:29)
[2024-01-10] MEDS ORDERED: QUEtiapine FUMARATE 300 MG TABLET PO SCH (22:00)
[2024-01-11] MEDS ORDERED: LORazepam 1 MG TABLET PO SCH (05:00)
[2024-01-12] MEDS ORDERED: LORazepam 0.5 MG TABLET PO PRN
[2024-01-12] MEDS ORDERED: LORazepam 0.5 MG TABLET PO SCH (05:00)
[2024-01-13] MEDS ORDERED: LORazepam 0.5 MG TABLET PO ONE (05:00)
== END 2024-01-10 12:41 | disposition left against medical advice (07) | DRG 770 ==
LOC: YASAS 10:53 → Y3N 13:05
PROVIDERS: ADMIT Allergy & Immunology; ATTEND Allergy & Immunology
PROC: HZ2ZZZZ Detoxification Services for Substance Abuse Treatment (ICD-10-PCS; principal; 2024-01-09)
DX: F10.230 Alcohol dependence with withdrawal, uncomplicated (principal); F12.20 Cannabis dependence, uncomplicated; F17.210 Nicotine dependence, cigarettes, uncomplicated; F19.24 Other psychoactive substance dependence with psychoactive substance-induced mood disorder; F32.A Depression, unspecified; I10 Essential (primary) hypertension; E78.5 Hyperlipidemia, unspecified; E03.9 Hypothyroidism, unspecified; E11.9 Type 2 diabetes mellitus without complications; Z79.4 Long term (current) use of insulin; J45.909 Unspecified asthma, uncomplicated; K21.9 Gastro-esophageal reflux disease without esophagitis; Z86.19 Personal history of other infectious and parasitic diseases
CPT/HCPCS: 80305; 82962

== ENCOUNTER 2024-03-17 15:48 | Inpatient (IN) | payer OTHER ==
[2024-03-17 16:49] VITALS: BMI 28.2
[2024-03-17] MEDS ORDERED: NALOXONE (NARCAN) HCL 4 MG/0.1 ML SPRAY NS PRN (17:38)
[2024-03-17] MEDS ORDERED: guaiFENesin 600 MG TABLET.ER (FP) PO PRN (17:38)
[2024-03-17] MEDS ORDERED: MAG HYDROX/AL HYDROX/SIMETH 30 ML UNIT-DOSE CUP PO PRN (17:38)
[2024-03-17] MEDS ORDERED: ONDANSETRON *ODT* 4 MG TABLET SL PRN (17:38)
[2024-03-17] MEDS ORDERED: DICYCLOMINE HCL 10 MG CAPSULE PO PRN (17:38)
[2024-03-17] MEDS ORDERED: MAGNESIUM HYDROX 2400MG/30ML ORAL SUSPENSION 30 ML CUP PO PRN (17:38)
[2024-03-17] MEDS ORDERED: LOPERAMIDE HCL 2 MG CAPSULE PO PRN (17:38)
[2024-03-17] MEDS ORDERED: ACETAMINOPHEN 325 MG TABLET (FP) PO PRN (17:38)
[2024-03-17] MEDS ORDERED: IBUPROFEN 600 MG TABLET (FP) PO PRN (17:38)
[2024-03-17] MEDS ORDERED: BISMUTH SUBSALICYLATE 524 MG/30 ML PO PRN (17:38)
[2024-03-17] MEDS ORDERED: POLYETHYLENE GLYCOL (HEALTHYLAX) 3350 17 GM PACKET PO PRN (17:38)
[2024-03-17] MEDS ORDERED: BENZOCAINE/MENTHOL (CHLORASEPTIC ) LOZENGE MM PRN (17:38)
[2024-03-17] MEDS ORDERED: IBUPROFEN 400 MG TABLET (FP) PO PRN (17:38)
[2024-03-17] MEDS ORDERED: hydrOXYzine PAMOATE 25 MG CAPSULE (FP) PO PRN (17:38)
[2024-03-17] MEDS ORDERED: NICOTINE POLACRILEX 2 MG LOZENGE BC PRN (17:38)
[2024-03-17] MEDS ORDERED: NICOTINE POLACRILEX 2 MG GUM BUC PRN (17:38)
[2024-03-17] MEDS ORDERED: BENZONATATE 200 MG CAPSULE PO PRN (17:38)
[2024-03-17] MEDS ORDERED: LORazepam 1 MG TABLET PO PRN (17:41)
[2024-03-17] MEDS: INSULIN ASPART SLIDING SCALE (NOVOLOG) 1 VIAL SQ SCH (18:47)
[2024-03-17] MEDS ORDERED: ALBUTEROL SO4 HFA INHALER IH PRN (19:45)
[2024-03-17] MEDS: LORazepam 2 MG TABLET PO SCH (22:21)
[2024-03-17] MEDS: MELATONIN 5 MG TABLETS PO SCH (22:21)
[2024-03-17] MEDS: THIAMINE 100 MG TABLET PO SCH (22:21)
[2024-03-17] MEDS: ATORVASTATIN CA 40 MG TABLET (FP) PO SCH (22:21)
[2024-03-18] MEDS: metFORMIN HCL 500 MG TABLET (FP) PO SCH (07:07)
[2024-03-18] MEDS: LEVOTHYROXINE NA 25 MCG TABLET (FP) PO SCH (07:08)
[2024-03-18] MEDS: PANTOPRAZOLE 40 MG TABLET PO SCH (07:08)
[2024-03-18] MEDS: PRENATAL VITAMINS W/ FOLIC ACID TABLET (FP) PO SCH (10:49)
[2024-03-18] MEDS: amLODIPine BESYLATE 2.5 MG TABLET (FP) PO SCH (10:49)
[2024-03-18] MEDS: LISINOPRIL 5 MG TABLET PO SCH (10:49)
[2024-03-18] MEDS: ASPIRIN 81 MG CHEWABLE TABLETS PO SCH (10:50)
[2024-03-18] MEDS: QUEtiapine FUMARATE 100 MG TABLET (FP) PO SCH (10:50)
[2024-03-18 13:49] LABS: HEMATOCRIT 41.6 % (32.4-45.2); HEMOGLOBIN 13.9 GM/dL (10.7-15.3); MCH 30.9 pg (25.7-33.7); MCHC 33.4 g/dl (32.0-36.0); MEAN CELL VOLUME 92.7 fl (80-96); MEAN PLT VOLUME 7.4 fl (7.5-11.1); PLATELET COUNT 376 10^3/uL (134-434); RBC 4.49 M/mm3 (3.60-5.2); RDW 14.1 % (11.6-15.6); WHITE BLOOD COUNT 6.4 K/mm3 (4.0-10.0)
[2024-03-18 15:32] LABS: CHLORIDE 102 mmol/L (98-107); SODIUM 134 mmol/L (136-145)
[2024-03-18 15:36] LABS: CALCIUM 9.3 mg/dL (8.5-10.1)
[2024-03-18 15:37] LABS: ANION GAP 7 mmol/L (4-13); BLOOD UREA NITROGEN 20.8 mg/dL (7-18); CO2 26 mmol/L (21-32); GLUCOSE,RANDOM 86 mg/dL (74-106)
[2024-03-18 15:40] LABS: CREATININE 0.8 mg/dL (0.55-1.3); SGOT/AST 49 U/L (15-37); SGPT/ALT 41 U/L (13-61)
[2024-03-18 15:41] LABS: BILIRUBIN,TOTAL 0.8 mg/dL (0.2-1); TOT PROT 7.4 g/dl (6.4-8.2)
[2024-03-18 15:43] LABS: ALK PHOS 108 U/L (45-117)
[2024-03-18] MEDS: QUEtiapine FUMARATE 200 MG TABLET PO SCH (23:05)
[2024-03-19] MEDS: LORazepam 1 MG TABLET PO SCH (06:00)
[2024-03-20] MEDS ORDERED: LORazepam 0.5 MG TABLET PO PRN
[2024-03-20] MEDS: LORazepam 0.5 MG TABLET PO SCH (05:39)
[2024-03-20] MEDS: METHOCARBAMOL 500 MG TABLET PO PRN (05:40)
[2024-03-21] MEDS: LORazepam 0.5 MG TABLET PO ONE (05:46)
[2024-03-21] MEDS: NALOXONE (NYS OPIOID OVERDOSE PROGRAM) 4 MG/0.1 ML SPRAY NS SCH (10:41)
[2024-03-21 16:54] VITALS: BP 165/92; PULSE 84; RESP 18; TEMP 98.2
[2024-03-22] MEDS ORDERED: QUEtiapine FUMARATE 200 MG TABLET PO SCH (10:00)
== END 2024-03-21 18:59 | disposition short-term general hospital (02) | DRG 774 ==
LOC: YASAS 15:48 → Y3N 18:53
PROVIDERS: ADMIT Allergy & Immunology; ATTEND Allergy & Immunology
PROC: HZ2ZZZZ Detoxification Services for Substance Abuse Treatment (ICD-10-PCS; principal; 2024-03-17)
DX: F10.230 Alcohol dependence with withdrawal, uncomplicated (principal); F14.20 Cocaine dependence, uncomplicated; F12.20 Cannabis dependence, uncomplicated; F17.210 Nicotine dependence, cigarettes, uncomplicated; F25.1 Schizoaffective disorder, depressive type; E03.9 Hypothyroidism, unspecified; I10 Essential (primary) hypertension; K21.9 Gastro-esophageal reflux disease without esophagitis; E10.9 Type 1 diabetes mellitus without complications; Z79.4 Long term (current) use of insulin; R45.851 Suicidal ideations; Z88.0 Allergy status to penicillin
CPT/HCPCS: 36415; 71045-TC-FY; 80053; 80305; 80307; 82962; 85027; 86780

== ENCOUNTER 2024-06-02 16:27 | Inpatient (IN) | payer OTHER ==
[2024-06-02 17:11] VITALS: BMI 27.9
[2024-06-02] MEDS ORDERED: PANTOPRAZOLE 40 MG TABLET PO ONE (19:18)
[2024-06-02] MEDS ORDERED: NICOTINE POLACRILEX 2 MG GUM BUC PRN (19:25)
[2024-06-02] MEDS ORDERED: IBUPROFEN 600 MG TABLET (FP) PO PRN (19:25)
[2024-06-02] MEDS ORDERED: MAG HYDROX/AL HYDROX/SIMETH 30 ML UNIT-DOSE CUP PO PRN (19:25)
[2024-06-02] MEDS ORDERED: ONDANSETRON *ODT* 4 MG TABLET SL PRN (19:25)
[2024-06-02] MEDS ORDERED: IBUPROFEN 400 MG TABLET (FP) PO PRN (19:25)
[2024-06-02] MEDS ORDERED: ACETAMINOPHEN 325 MG TABLET (FP) PO PRN (19:25)
[2024-06-02] MEDS ORDERED: DICYCLOMINE HCL 10 MG CAPSULE PO PRN (19:25)
[2024-06-02] MEDS ORDERED: METHOCARBAMOL 500 MG TABLET PO PRN (19:25)
[2024-06-02] MEDS ORDERED: NALOXONE (NARCAN) HCL 4 MG/0.1 ML SPRAY NS PRN (19:25)
[2024-06-02] MEDS ORDERED: BENZONATATE 200 MG CAPSULE PO PRN (19:25)
[2024-06-02] MEDS ORDERED: POLYETHYLENE GLYCOL (HEALTHYLAX) 3350 17 GM PACKET PO PRN (19:25)
[2024-06-02] MEDS ORDERED: NICOTINE POLACRILEX 2 MG LOZENGE BC PRN (19:25)
[2024-06-02] MEDS ORDERED: LOPERAMIDE HCL 2 MG CAPSULE PO PRN (19:25)
[2024-06-02] MEDS ORDERED: BENZOCAINE/MENTHOL (CHLORASEPTIC ) LOZENGE MM PRN (19:25)
[2024-06-02] MEDS ORDERED: MAGNESIUM HYDROX 2400MG/30ML ORAL SUSPENSION 30 ML CUP PO PRN (19:25)
[2024-06-02] MEDS ORDERED: guaiFENesin 600 MG TABLET.ER (FP) PO PRN (19:25)
[2024-06-02] MEDS ORDERED: BISMUTH SUBSALICYLATE 524 MG/30 ML PO PRN (19:25)
[2024-06-02] MEDS ORDERED: LORazepam 1 MG TABLET ONE (20:58)
[2024-06-02] MEDS: PANTOPRAZOLE 40 MG TABLET PO ONE (20:59)
[2024-06-02] MEDS: LORazepam 1 MG TABLET PO PRN (21:00)
[2024-06-02] MEDS ORDERED: ALBUTEROL SO4 HFA INHALER IH PRN (21:37)
[2024-06-02] MEDS: MELATONIN 5 MG TABLETS PO SCH (22:29)
[2024-06-02] MEDS: ATORVASTATIN CA 40 MG TABLET (FP) PO SCH (22:29)
[2024-06-02] MEDS: LORazepam 2 MG TABLET PO SCH (22:29)
[2024-06-02] MEDS: THIAMINE 100 MG TABLET PO SCH (22:29)
[2024-06-03] MEDS: metFORMIN HCL 500 MG TABLET (FP) PO SCH (06:13)
[2024-06-03] MEDS: LEVOTHYROXINE NA 25 MCG TABLET (FP) PO SCH (06:13)
[2024-06-03] MEDS: LISINOPRIL 10 MG TABLET PO ONE (07:57)
[2024-06-03] MEDS: PANTOPRAZOLE 40 MG TABLET PO SCH (10:55)
[2024-06-03] MEDS: LISINOPRIL 20 MG TABLET PO SCH (10:55)
[2024-06-03] MEDS: ASPIRIN 81 MG CHEWABLE TABLETS PO SCH (10:55)
[2024-06-03] MEDS: PRENATAL VITAMINS W/ FOLIC ACID TABLET (FP) PO SCH (10:55)
[2024-06-03] MEDS: NIFEdipine E.R. 90 MG TABLET PO SCH (11:00)
[2024-06-03 12:32] LABS: HEMOGLOBIN 13.9 g/dL (11.2-15.7); MCHC 33.1 g/dl (32.2-35.5); MEAN CELL VOLUME 92.9 fl (79.4-94.8); PLATELET COUNT 323 x10^3/uL (182-369); RDW 12.5 % (12.3-16.6)
[2024-06-03 12:45] LABS: CHLORIDE 102 mmol/L (98-107); POTASSIUM 3.4 mmol/L (3.5-5.1); SODIUM 138 mmol/L (136-145)
[2024-06-03 12:49] LABS: ANION GAP 8 mmol/L (4-13); BLOOD UREA NITROGEN 10.6 mg/dL (7-18); CALCIUM 9.5 mg/dL (8.5-10.1); CO2 28 mmol/L (21-32); GLUCOSE,RANDOM 110 mg/dL (74-106)
[2024-06-03 12:51] LABS: ALBUMIN 3.2 g/dl (3.4-5.0)
[2024-06-03 12:53] LABS: CREATININE 0.8 mg/dL (0.55-1.3); SGOT/AST 56 U/L (15-37); SGPT/ALT 52 U/L (13-61)
[2024-06-03 12:55] LABS: BILIRUBIN,TOTAL 0.8 mg/dL (0.2-1); TOT PROT 7.1 g/dl (6.4-8.2)
[2024-06-03 12:56] LABS: ALK PHOS 119 U/L (45-117)
[2024-06-04] MEDS: LORazepam 1 MG TABLET PO SCH (05:43)
[2024-06-05] MEDS ORDERED: LORazepam 0.5 MG TABLET PO PRN
[2024-06-05] MEDS: LORazepam 0.5 MG TABLET PO SCH (05:41)
[2024-06-05 08:57] VITALS: RESP 18
[2024-06-05 13:04] VITALS: BP 123/76; PULSE 85; TEMP 97.9
[2024-06-05] MEDS: NALTREXONE HCL 50 MG TABLET PO ONE (14:01)
[2024-06-05] MEDS ORDERED: QUEtiapine FUMARATE 200 MG TABLET PO SCH (22:00)
[2024-06-06] MEDS ORDERED: LORazepam 0.5 MG TABLET PO ONE (05:00)
[2024-06-06] MEDS ORDERED: NALTREXONE HCL 50 MG TABLET PO SCH (10:00)
== END 2024-06-05 16:51 | disposition home or self-care (01) | DRG 775 ==
LOC: YASAS 16:27 → Y6N 21:02
PROVIDERS: ADMIT Allergy & Immunology; ATTEND Allergy & Immunology
PROC: HZ2ZZZZ Detoxification Services for Substance Abuse Treatment (ICD-10-PCS; principal; 2024-06-02)
DX: F10.230 Alcohol dependence with withdrawal, uncomplicated (principal); F12.20 Cannabis dependence, uncomplicated; F17.210 Nicotine dependence, cigarettes, uncomplicated; F25.1 Schizoaffective disorder, depressive type; I10 Essential (primary) hypertension; J44.9 Chronic obstructive pulmonary disease, unspecified; K21.9 Gastro-esophageal reflux disease without esophagitis; E87.6 Hypokalemia; E78.5 Hyperlipidemia, unspecified; E03.9 Hypothyroidism, unspecified; E11.9 Type 2 diabetes mellitus without complications; Z79.84 Long term (current) use of oral hypoglycemic drugs
CPT/HCPCS: 36415; 80053; 80305; 80307; 81025; 82962; 85027; 86780; 93005; 93010